=== PATIENT | female | born 1970 | race Caucasian/White ===

== ENCOUNTER 2019-06-05 19:26 | Emergency (ER) | payer OTHER, SELFPAY ==
[2019-06-05 19:36] VITALS: BP 132/75; PULSE 83; RESP 20; TEMP 37.1; O2SAT 97
--- NOTE | 2019-06-05 19:37 | ED.SKABFB ---
HPI - Skin/Abscess/Foreign Bdy General Chief complaint: Skin/Abscess/Foreign Body Stated complaint: Rash Time Seen by Provider: 06/05/19 19:35 Source: patient and RN notes reviewed Mode of arrival: ambulatory Limitations: no limitations History of Present Illness HPI narrative: 49-year-old female presents with concern for rash. Reports a history of hives for which she takes 2 Zyrtec and famotidine daily. Reports this rash started Saturday on her breasts and under her axilla. Reports it is extremely itchy and she is been scratching it quite a bit. complaint: rash Related Data Home Medications Medication Instructions Recorded Confirmed cetirizine [Zyrtec] 10 mg PO DAILY 06/05/19 06/05/19 famotidine 20 mg PO BID 06/05/19 06/05/19 montelukast [Singulair] 10 mg PO HS 06/05/19 06/05/19 sertraline 100 mg PO DAILY 06/05/19 06/05/19 spironolactone 100 mg PO QAM 06/05/19 06/05/19 Allergies Allergy/AdvReac Type Severity Reaction Status Date / Time No Known Allergies Allergy Verified 06/05/19 19:48 Review of Systems Review of Systems: Narrative: CONSTITUTIONAL: Denies malaise, chills, sweats, or fever. EYES: Denies visual changes, redness, or discharge. ENT: Denies sore throat, difficulty swallowing CARDIOVASCULAR: Denies chest pain, palpitations RESPIRATORY: Denies cough or dyspnea. GASTROINTESTINAL: Denies nausea, vomiting, diarrhea, bloody, or mucous stools. SKIN: Reports itchy rash on breasts and underarms MUSCULOSKELETAL: Denies myalgia. NEUROLOGIC: Denies headache. All systems reviewed & are unremarkable except as noted in HPI and below PMFSH Comments At time of signature, agree with nursing past medical, surgical, social and family history. There is no relevant family history pertinent to the presenting complaint Exam Narrative: Exam Narrative: GENERAL: Well-appearing, well-nourished, and in no acute distress. HEAD: Normocephalic, atraumatic. EYES: PERRLA, conjunctivae clear ENT: Mucous membranes moist. Oropharynx without edema, erythema or lesions. NECK: Supple. CHEST: No respiratory distress. Speaks in full sentences. HEART: Regular rate and rhythm. EXTREMITIES: Normal range of motion. SKIN: Warm, dry, no rash. [place] and erythematous maculopapular rash noted to bilateral breasts under bra and under axilla consistent with Jaycee NEURO: Alert and oriented x3. PSYCH: Normal mood and affect Course Course Emergency Course: Patient is aware of diagnosis, understands and agrees to treatment plan. Anticipatory guidance given. Patient agrees to follow-up as directed and is aware of reasons to seek care at the emergency department. Portions of this record may have been created with voice recognition software Vital Signs Vital signs: Vital Signs Temperature 98.8 F 06/05/19 19:36 Pulse Rate 83 06/05/19 19:36 Respiratory Rate 20 06/05/19 19:36 Blood Pressure 132/75 06/05/19 19:36 Pulse Oximetry 97 06/05/19 19:36 Temperature 98.8 F 06/05/19 19:36 Pulse Rate 83 06/05/19 19:36 Respiratory Rate 20 06/05/19 19:36 Blood Pressure 132/75 06/05/19 19:36 Pulse Oximetry 97 06/05/19 19:36 Reviewed. MDM - Skin/Abscess/Foreign Bdy MDM Narrative Medical decision making narrative: Does not appear at this time to be erythema multiforme, bullous, SJS, TEN; no evidence at this time to suggest RMSF, endocarditis or Lyme disease; patient looks well, nontoxic and is tolerating oral intake; no neurologic signs or symptoms; no headache, photophobia or neck pain; afebrile; appropriate for initial outpatient treatment; discussed the importance of follow-up, patient agrees; question, viral exanthema, contact dermatitis, allergic dermatitis, eczema, urticaria, tinea, Jaycee. No soft palate or uvula edema, no tongue, lip edema or other mucosal involvement, no respiratory compromise, no stridor, no wheezing, no wheezing, no history of syncope, no hypotension, no nausea, vomiting, or diarrhea. Instruct
== END 2019-06-05 19:53 | disposition home or self-care (01) ==
PROVIDERS: Emergency Provider Nurse Practitioner; PCP Internal Medicine
DX: B37.2 Candidiasis of skin and nail (principal)
CPT/HCPCS: 99213; G0463

== ENCOUNTER 2020-04-03 10:24 | Emergency (ER) | payer OTHER, SELFPAY ==
[2020-04-03 10:32] VITALS: BP 121/42; PULSE 85; RESP 16; TEMP 36.6; O2SAT 98
--- NOTE | 2020-04-03 11:15 | ED.FEMALEGU ---
HPI - Female Genitourinary General Chief complaint: Urogenital-Female Stated complaint: poss uti Time Seen by Provider: 04/03/20 10:40 Source: patient and RN notes reviewed Mode of arrival: ambulatory Limitations: no limitations History of Present Illness HPI Narrative: 50-year-old female who presents to [facility] with complaints of having left lower abdominal discomfort starting yesterday with frequency, urgency, and trouble urinating. This morning pain in her left lower abdomen awoke her with pain being very sharp with continued suprapubic pressure, urination of small amounts. Patient states that she was diagnosed last year with diverticulitis and her pain today is similar to that event. Patient also has rash which is red raised and itchy to her upper chest and breast area using triamcinolone cream to skin rash.Patient reports that he was started on Augmentin this past week for a sinus infection then developed rash, did not take dose this morning. Patient denies any vomiting or diarrhea, denies any radiation of pain or any CVA tenderness. MD elicited complaint: dysuria, difficulty urinating and other (left lower quadrant pain) Pertinent past history: other (diverticulitis) Onset (ago): day(s) (1) Location of symptoms: suprapubic and LLQ Severity: severe Female Urogenital Radiation: Suprapubic and LLQ Severity scale (1-10): 7 Quality of pain: sharp Consistency: progressively worsening Vaginal discharge: none Vaginal bleeding: none Urinary symptoms: Urgency (going small amounts) and Frequency Exacerbating factors: urination and movement Relieving factors: none Associated symptoms: abdominal pain (LLQ) Sexual activity: Yes Patient : No Possible : other (mirena) Related Data Home Medications Medication Instructions Recorded Confirmed cetirizine [Zyrtec] 10 mg PO BID 06/05/19 04/03/20 famotidine 20 mg PO BID 06/05/19 04/03/20 montelukast [Singulair] 10 mg PO HS 06/05/19 04/03/20 sertraline 100 mg PO DAILY 06/05/19 04/03/20 spironolactone 100 mg PO QAM 06/05/19 04/03/20 acyclovir 800 mg PO BID 04/03/20 04/03/20 amoxicillin-pot clavulanate 1 tablet PO Q12H 04/03/20 04/03/20 levonorgestrel [Mirena] 1 device INTRAUTERINE ONCE 04/03/20 04/03/20 lorazepam 0.5 mg PO HS PRN 04/03/20 04/03/20 spironolactone 100 mg PO DAILY 04/03/20 04/03/20 triamcinolone acetonide 1 applic TOPICAL BID 04/03/20 04/03/20 Allergies Allergy/AdvReac Type Severity Reaction Status Date / Time No Known Allergies Allergy Verified 04/03/20 10:55 Review of Systems Review of Systems: Narrative: CONSTITUTIONAL: Denies fever, chills, or sweats. EYES: Denies visual changes, redness, or discharge. ENT: Denies rhinorrhea, congestion, sore throat, or otalgia. CARDIOVASCULAR: Denies chest pain, palpitations, or edema. RESPIRATORY: Denies cough or dyspnea. GASTROINTESTINAL: Positive for sharp left lower quadrant abdominal pain,no nausea, vomiting, or diarrhea. GENITOURINARY: Reports difficulty with urination, some urgency, frequency, and pelvic pressure with no visible hematuria noted. SKIN: Denies rash or itching. MUSCULOSKELETAL: Denies back pain, joint pain, or myalgia. NEUROLOGIC: Denies headache, numbness, or weakness. PSYCHIATRIC: Denies anxiety or depression. All systems reviewed & are unremarkable except as noted in HPI and below PMFSH Past Medical History Medical History (Updated 04/04/20 @ 15:02 by Yaa Hawthorne NP) Depression Diverticulitis Hidradenitis removal of cysts bilateral axilla Surgical History Surgical History (Updated 04/03/20 @ 13:40 by Yaa Hawthorne NP) Hx of spinal surgery 2006 lumbar cage Social History Social History (Updated 04/03/20 @ 13:41 by Yaa Hawthorne NP) Smoking status: Never smoker Substance use: never Living arrangements: with family Gender identity (if verbalized by the patient): Female Comments At time of signature, agree with nursing past medical, surgical, social his
== END 2020-04-03 11:30 | disposition short-term general hospital (02) ==
PROVIDERS: Emergency Provider Registered Nurse; PCP Internal Medicine
DX: R10.32 Left lower quadrant pain (principal); N39.0 Urinary tract infection, site not specified
CPT/HCPCS: 81003; 87077; 87086; 87088; 87186; 99213; G0463

== ENCOUNTER 2021-04-14 17:01 | Emergency (ER) | payer OTHER, SELFPAY ==
[2021-04-14 17:16] VITALS: BP 131/85; PULSE 100; RESP 20; TEMP 37.7; O2SAT 98
--- NOTE | 2021-04-14 18:01 | ED.URI ---
HPI - URI/Sore Throat General Chief Complaint: Upper Respiratory Infection Stated Complaint: Sinus Pain Source: patient and RN notes reviewed Mode of arrival: ambulatory Limitations: no limitations History of Present Illness HPI Narrative: 51 y/o female presented for c/o sinus pressure, congestion, PND and cough with green sputum x3 days. Pressure worse behind eyes, endorses hoarseness. Denies fatigue, n/v/d/f/c. Home covid test negative. fully vaccinated. No known sick contacts. Takes zyrtec daily. Related Data Home Medications Medication Instructions Recorded Confirmed acyclovir 400 mg PO DAILY 04/14/21 04/14/21 buspirone 10 mg PO DAILY 04/14/21 04/14/21 levonorgestrel [Mirena] 1 insert INTRAUTERINE ONCE 04/14/21 04/14/21 nortriptyline 10 mg PO DAILY 04/14/21 04/14/21 sertraline 150 mg PO DAILY 04/14/21 04/14/21 Review of Systems Review of Systems: CONSTITUTIONAL: Denies body aches, fever, chills, or sweats. EYES: Denies visual changes, redness, or discharge. ENT: Endorses rhinorrhea, congestion, Denies sore throat, or otalgia. CARDIOVASCULAR: Denies chest pain, palpitations, or edema. RESPIRATORY: Endorses cough denies dyspnea. GASTROINTESTINAL: Denies abdominal pain, nausea, vomiting, or diarrhea. GENITOURINARY: Denies dysuria or hematuria. SKIN: Denies rash, itching, or wounds. MUSCULOSKELETAL: Denies back pain, joint pain, or myalgia. NEUROLOGIC: Denies headache, numbness, tingling, or weakness. Exam Narrative: GENERAL: Well-appearing, no acute distress. HEAD: Normocephalic, atraumatic. EYES: EOMI. No redness or drainage. Conjunctivae normal. ENT: Mucous membranes pink and moist. Nares clear. No rhinorrhea. NECK: Normal AROM. Supple. CHEST: No respiratory distress. Clear to auscultation. HEART: Regular rate and rhythm. No murmur appreciated. Normal peripheral pulses. ABDOMEN: Soft, nontender MUSCULOSKELETAL: No bony tenderness. EXTREMITIES: Normal range of motion. No edema. SKIN: Warm, dry, no rash. Capillary refill normal. Normal skin turgor. NEURO: No focal deficits. Alert and oriented x3. Gait steady. PSYCH: Normal affect. No signs of depression or anxiety. Course Course Emergency Course: Covid swab neg Patient is aware of diagnosis, understands and agrees to treatment plan. Anticipatory guidance given. Patient agrees to follow-up as directed and is aware of reasons to seek care at the emergency department. Portions of this record may have been created with voice recognition software Level of Care: Express Care Visit Vital Signs Vital signs: Vital Signs Temperature 99.8 F H 04/14/21 17:16 Pulse Rate 100 04/14/21 17:16 Respiratory Rate 20 04/14/21 17:16 Blood Pressure 131/85 04/14/21 17:16 Pulse Oximetry 98 04/14/21 17:16 Temperature 99.8 F H 04/14/21 17:16 Pulse Rate 100 04/14/21 17:16 Respiratory Rate 20 04/14/21 17:16 Blood Pressure 131/85 04/14/21 17:16 Pulse Oximetry 98 04/14/21 17:16 reviewed MDM - URI/Sore Throat Differential Diagnosis Differential diagnosis: Likely upper respiratory infection, sinusitis and viral infection Lab Data Attestation: I reviewed the patient's lab results. Labs: Lab Results 04/14/21 Range/Units 18:44 POC SARS CoV-2 Ag Negative (Negative) Discharge Plan Discharge Clinical Impression: Upper respiratory infection Patient Disposition: Home, Self-Care Condition: Stable Instructions: Antibiotic Form, Upper Respiratory Infection (ED) Additional Instructions: Tylenol 1000mg every 8 hours as needed Continue Zyrtec Start Flonase daily Your Rapid COVID test was negative today. If you are symptomatic with reason to believe you have COVID-19, there is a high possibility your rapid test may not have detected the virus. Rapid testing is dependent on timing and viral load and may have a false-negative reading You should follow appropriate guidelines regarding quarantine, hand washing, mask wearing,
== END 2021-04-14 19:05 | disposition home or self-care (01) ==
PROVIDERS: Emergency Provider Nurse Practitioner Family
DX: J06.9 Acute upper respiratory infection, unspecified (principal); Z20.822 Contact with and (suspected) exposure to COVID-19
CPT/HCPCS: 87426; 99213; C9803; G0463

== ENCOUNTER 2022-07-09 12:40 | Emergency (ER) | payer OTHER, SELFPAY ==
[2022-07-09 12:51] VITALS: BP 129/72; PULSE 72; RESP 16; TEMP 36.6; O2SAT 100
--- NOTE | 2022-07-09 12:51 | ED.ABDPAIN ---
HPI - Abdominal Pain General Chief Complaint: Abdominal Pain Stated Complaint: Abdominal Pain/Diarrhea Time Seen by Provider: 07/09/22 12:53 Source: patient and RN notes reviewed History of Present Illness HPI narrative: Patient is a 52-year-old female who presents to urgent care with complaints of lower abdominal discomfort and loose stools. Patient states she has had approximately 5 or 6 loose stools since Saturday. Patient states she was diagnosed with IBS a couple months ago after having an upper and lower GI scope. Patient states she has not followed up with her GI doctor since the symptoms started. Denies any vomiting. Denies any recent urinary symptoms. Denies any fevers. No other acute complaints. No acute distress noted. Patient aware of the plan of care. Some parts of this dictation were generated by voice recognition software and may contain typographical and/or grammatical inaccuracies. Related Data Home Medications Medication Instructions Recorded Confirmed sertraline 100 mg tablet 100 mg PO DAILY 06/05/19 04/03/20 acyclovir 800 mg tablet 800 mg PO BID 04/03/20 04/03/20 levonorgestrel 21 mcg/24 hours (8 1 device intrauterine ONCE 04/03/20 04/03/20 yrs) 52 mg intrauterine device (Mirena) lorazepam 0.5 mg tablet 0.5 mg PO HS PRN Anxiety 04/03/20 04/03/20 spironolactone 100 mg tablet 100 mg PO DAILY 04/03/20 04/03/20 triamcinolone acetonide 0.1 % 1 applic topical BID 04/03/20 04/03/20 topical ointment Allergies Allergy/AdvReac Type Severity Reaction Status Date / Time No Known Allergies Allergy Verified 04/03/20 10:55 Review of Systems Review of Systems: CONSTITUTIONAL: Denies fever, chills, or sweats. EYES: Denies visual changes, redness, or discharge. ENT: Denies rhinorrhea, congestion, sore throat, or otalgia. CARDIOVASCULAR: Denies chest pain, palpitations, or edema. RESPIRATORY: Denies cough or dyspnea. GASTROINTESTINAL: Reports of lower abdominal discomfort and diarrhea GENITOURINARY: Denies dysuria or hematuria. SKIN: Denies rash or itching. MUSCULOSKELETAL: Denies back pain, joint pain, or myalgia. NEUROLOGIC: Denies headache, numbness, or weakness. All other systems reviewed are negative, except as documented in HPI. [facility] Past Medical History Medical History (Updated 07/09/22 @ 13:13 by VALENTIN Andre) Depression Diverticulitis Hidradenitis removal of cysts bilateral axilla Surgical History Surgical History (Updated 04/03/20 @ 13:40 by Yaa Hawthorne NP) Hx of spinal surgery 2006 lumbar cage Social History Social History (Updated 04/03/20 @ 13:41 by Yaa Hawthorne NP) Smoking status: Never smoker Substance use: never Living arrangements: with family Gender identity (if verbalized by the patient): Female Comments At the time of my signature, I reviewed and agree with the nursing past medical, surgical, social, and family history. There is no relevant family history pertinent to the patient complaint. Exam Narrative: GENERAL: This is a well-nourished, well-developed patient, in no apparent distress. HEAD: normocephalic, atraumatic. EYES: PERRL. Sclera clear/white. Vision is grossly intact. EARS: External ears normal NOSE: External nose normal with no obvious nasal discharge, nares without redness, no rhinorrhea. THROAT: Mucous membranes moist NECK: Neck supple CARDIOVASCULAR: Regular rate and rhythm without murmurs, gallops, or rubs. RESPIRATORY: Clear to auscultation. Breath sounds equal bilaterally. No wheezes, rales, or rhonchi. GASTROINTESTINAL: Abdomen soft, mild diffuse lower abdominal tenderness, nondistended. Bowel sounds are active. No guarding. SKIN: warm, intact with no suspicious lesions or rash, good texture and turgor. NEURO: awake, alert, and oriented to person, place and time. There were no obvious focal neurologic abnormalities. EXTREMITIES: No clubbing, cyanosis, or edema. Course Course Level of Care: Dinesh Santos
== END 2022-07-09 13:17 | disposition home or self-care (01) ==
PROVIDERS: Emergency Provider Nurse Practitioner Family; PCP Internal Medicine
DX: R19.7 Diarrhea, unspecified (principal); Z87.19 Personal history of other diseases of the digestive system; F32.A Depression, unspecified
CPT/HCPCS: 81003; 99212; G0463

== ENCOUNTER 2023-05-31 15:50 | Outpatient (CLI) | payer OTHER, SELFPAY ==
--- NOTE | ~2023-05-31 | XR_ITS ---
EXAMINATION: XR lumbar spine 2-3V DATE: 05/31/2023 16:22 INDICATION: Spondylosis without myelopathy or radiculopathy. TECHNIQUE: 5 views of lumbar spine including flexion and extension views and standing views were obta ined. COMPARISON: None. FINDINGS: There is 4 degrees dextrocurvature of lumbar spine. There are changes of anterior fusion pr ocedure at L4-L5 with interbody devices and anterior plate and screws. The spine is hypomobile with f lexion and extension. Vertebral body heights are normal. There is severely decreased disc height at T 11-T12 and L2-L3 and moderately decreased disc height at L3-L4. There is multilevel facet joint osteo arthritis, severe in the lower lumbar spine. There is an intrauterine device in expected position. IMPRESSION: 1. Severe lumbar spondylosis. 2. Anterior fusion procedure at L4-L5. Reviewed, dictated and finalized at location E. ERMAKER'S ASSISTANT
== END 2023-05-31 15:51 | disposition home or self-care (01) ==
PROVIDERS: Visit Provider Physician Assistant
DX: M47.896 Other spondylosis, lumbar region (principal); Z98.1 Arthrodesis status
CPT/HCPCS: 72100

== ENCOUNTER 2023-06-14 15:12 | Outpatient (CLI) | payer OTHER, SELFPAY ==
--- NOTE | ~2023-06-14 | MR_ITS ---
EXAMINATION: MR thoracic spine wo con DATE: 06/14/2023 15:46 INDICATION: Lumbar radiculopathy radiating down the right leg. Low back pain. TECHNIQUE: Magnetic resonance imaging (MRI) of the thoracic spine was performed without intravenous c ontrast. COMPARISON: Lumbar spine radiographs 05/31/2023 FINDINGS: There is 6 degrees levocurvature of upper thoracic spine. There is mild chronic anterior we dging of T11 and T12 vertebral bodies. There is moderately decreased disc height at T2-T3, mildly dec reased disc height at T3-T4, and severely decreased disc height at T11-T12. At T7-T8, there is a righ t central extrusion with mild central canal stenosis and ventral indentation of the spinal cord. At T 11-T12, the disc is bulging with mild central canal stenosis. At T12-L1, there is a central protrusio n with mild central canal stenosis. There is multilevel severe facet joint osteoarthritis. There is m ild neural foraminal stenosis bilaterally at most levels. On the right, there is moderate neural fora chelsea stenosis at T8-9. On the left, there is moderate neural foraminal stenosis at T9-T10. The spina l cord signal intensity is normal. The conus medullaris is at L1-L2. IMPRESSION: 1. Severe thoracic spondylosis. Reviewed, dictated and finalized at location E. NE PROJECT MANAGER
== END 2023-06-14 15:13 ==
PROVIDERS: PCP Anesthesiology Pain Medicine; Visit Provider Anesthesiology Pain Medicine
DX: M43.04 Spondylolysis, thoracic region (principal)
CPT/HCPCS: 72146

== ENCOUNTER 2023-07-31 15:13 | Outpatient (CLI) | payer OTHER, SELFPAY ==
--- NOTE | ~2023-07-31 | XR_ITS ---
EXAMINATION: XR chest 2V 07/31/2023 15:31 INDICATION: Failed back surgery syndrome PROCEDURE: 2 view chest COMPARISON: No prior studies for comparison. FINDINGS: The lungs are clear. The cardiomediastinal silhouette is within normal limits. There are no pleural effusions. There is no pneumothorax suspected. IMPRESSION: 1: NO ACUTE CARDIOPULMONARY DISEASE. Reviewed, dictated and finalized at location B.
--- NOTE | 2023-07-31 15:36 | ECG_ITS ---
SEE SCANNED COPY FOR CONFIRMED REPORT MTDD
== END 2023-07-31 15:14 | disposition home or self-care (01) ==
PROVIDERS: PCP Anesthesiology Pain Medicine; Visit Provider Neurological Surgery
DX: M96.1 Postlaminectomy syndrome, not elsewhere classified (principal)
CPT/HCPCS: 71046; 93005

== ENCOUNTER 2023-12-13 16:08 | Emergency (ER) | payer OTHER, SELFPAY ==
--- NOTE | ~2023-12-13 | XR_ITS ---
EXAMINATION: XR foot LT min 3V DATE: 12/13/2023 16:38 INDICATION: Dorsal lateral left foot pain TECHNIQUE: Dorsoplantar, two oblique and lateral views of the left foot were obtained. COMPARISON: None. FINDINGS: Bone alignment is normal. No fracture. Polyarticular osteoarthritis the left foot, mild at the first metatarsophalangeal joint and minimal to mild at several tarsometatarsal and interphalangeal joints. No erosions to suggest inflammatory arthritis. Small heterotopic ossicle along the dorsal neck the ta erin likely sequela of old trauma. Mild soft tissue dorsum of the forefoot. No ankle joint effusion. IMPRESSION: 1. Mild polyarticular osteoarthritis in the mid and forefoot. No acute osseous abnormality. Reviewed, dictated and finalized at location A.
[2023-12-13 16:15] VITALS: BP 121/67; PULSE 77; RESP 16; TEMP 36.6; O2SAT 99
--- NOTE | 2023-12-13 16:16 | ED.EXTPRO ---
HPI - Extremity Problem General Chief complaint: Extremity Problem,Nontraumatic Stated complaint: Swollen Left Foot Time Seen by Provider: 12/13/23 16:16 Source: patient, RN notes reviewed and old records reviewed Mode of arrival: ambulatory Limitations: no limitations History of Present Illness HPI Narrative: 53-year-old female presents to the [facility] with complaints of left foot pain that started 2 days ago. Denies any injury. Reports mild swelling to the dorsal and lateral aspect. Positive pedal pulse. Maybe to move toes. Capillary refill under 2 seconds. Does wear sandals Onset (ago): day(s) (2) Related Data Home Medications Medication Instructions Recorded Confirmed levonorgestrel 21 mcg/24 hr (up to 1 device intrauterine ONCE 04/03/20 12/13/23 8 years) 52 mg intrauterine device (Mirena) lorazepam 0.5 mg tablet 0.5 mg PO HS PRN Anxiety 04/03/20 12/13/23 acyclovir 400 mg tablet 400 mg PO DAILY 04/14/21 12/13/23 sertraline 100 mg tablet 150 mg PO DAILY 04/14/21 12/13/23 acetaminophen 500 mg capsule 500 mg PO ONCE PRN Pain, Mild 05/08/23 12/13/23 omeprazole 20 mg capsule,delayed 20 mg PO BID 05/08/23 12/13/23 release cetirizine 10 mg tablet (Zyrtec) 10 mg PO DAILY 12/13/23 12/13/23 pregabalin 150 mg capsule 150 mg PO BID 12/13/23 12/13/23 vibegron 75 mg tablet (Gemtesa) 75 mg PO DAILY 12/13/23 12/13/23 Allergies Allergy/AdvReac Type Severity Reaction Status Date / Time amoxicillin Allergy Hives Verified 12/13/23 16:13 Review of Systems Review of Systems: All systems reviewed & are unremarkable except as noted in HPI and below Constitutional: Constitutional: Reports no additional constitutional complaints Eyes: Eyes: Reports no additional eye complaints ENT: Reports system reviewed and no additional complaints, except as documented Cardiovascular: Cardiovascular: Reports no additional cardiovascular complaints, Denies chest pain and Denies dyspnea Respiratory: Respiratory: Reports no additional respiratory complaints, Denies chest congestion, Denies cough and Denies dyspnea Gastrointestinal: Gastrointestinal: Reports no additional gastrointestinal complaints, Denies abdominal pain, Denies nausea and Denies vomiting Musculoskeletal: Musculoskeletal: Reports as per HPI Integumentary/Breasts: Skin/Breast: Reports system reviewed and no additional complaints, except as docu Neurologic: Reports system reviewed and no additional complaints, except as documented Psychiatric: Psychiatric: Reports no additional psychiatric complaints Allergic/Immunologic: Allergic/Immunologic: Reports no additional allergic/immunologic complaints [facility] Past Medical History Medical History Depression Diverticulitis Hidradenitis removal of cysts bilateral axilla Surgical History Surgical History Hx of spinal surgery 2006 lumbar cage Family History Family History Father Depression Heart disease Mother Hypertension Depression Grandparent Alcoholism Social History Social History Smoking status: Never smoker Alcohol intake: never Substance use: never Substance use type: does not use Do You Feel Safe in your Home?: Yes Lack of Transportation: No Lack of Food: Never True Current Housing: I Have Housing Concerned About Future Housing: No Difficulty Paying Gas/Electric Bills: No Difficulty Paying for Meds: No Currently Unemployed: No Education: Master's Degree or Higher Difficulty w/ Childcare or Family Care: No Living arrangements: with family Gender identity (if verbalized by the patient): Female Comments At the time of my signature, I reviewed and agree with the nursing past medical, surgical, social, and family history. There is no relevant famil
[2023-12-13 16:18] VITALS: BP 121/67; PULSE 77; RESP 16; TEMP 36.6; O2SAT 99
== END 2023-12-13 16:56 | disposition home or self-care (01) ==
PROVIDERS: Emergency Provider Nurse Practitioner; PCP Internal Medicine
DX: M19.072 Primary osteoarthritis, left ankle and foot (principal); F32.A Depression, unspecified
CPT/HCPCS: 73630; 99213; G0463

== ENCOUNTER 2024-03-01 08:27 | Emergency (ER) | payer OTHER, SELFPAY ==
[2024-03-01 08:32] VITALS: BP 144/86; PULSE 88; RESP 18; TEMP 36.6; O2SAT 98
--- NOTE | 2024-03-01 08:46 | ED.GENADULT ---
HPI - General Adult General Stated complaint: Urinary Problem Source: patient Mode of arrival: ambulatory Limitations: no limitations History of Present Illness HPI narrative: Patient presents for evaluation of urinary symptoms for last 2 weeks. Symptoms include urinary frequency, urgency, and some incontinence. She states the incontinence is not new. 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 She had issues with incontinence thereafter and was told that she will have ongoing urinary issues as a result of that. No fever, chills, nausea, vomiting, abdominal pain, low back pain, hematuria or dysuria. Related Data Home Medications Medication Instructions Recorded Confirmed levonorgestrel 21 mcg/24 hr (up to 1 device intrauterine ONCE 04/03/20 12/13/23 8 years) 52 mg intrauterine device (Mirena) lorazepam 0.5 mg tablet 0.5 mg PO HS PRN Anxiety 04/03/20 12/13/23 acyclovir 400 mg tablet 400 mg PO DAILY 04/14/21 12/13/23 sertraline 100 mg tablet 150 mg PO DAILY 04/14/21 12/13/23 acetaminophen 500 mg capsule 500 mg PO ONCE PRN Pain, Mild 05/08/23 12/13/23 omeprazole 20 mg capsule,delayed 20 mg PO BID 05/08/23 12/13/23 release cetirizine 10 mg tablet (Zyrtec) 10 mg PO DAILY 12/13/23 12/13/23 pregabalin 150 mg capsule 150 mg PO BID 12/13/23 12/13/23 vibegron 75 mg tablet (Gemtesa) 75 mg PO DAILY 12/13/23 12/13/23 Allergies Allergy/AdvReac Type Severity Reaction Status Date / Time amoxicillin [From Augmentin] Allergy Unknown Unknown Verified 03/01/24 08:49 clavulanic acid Allergy Unknown Unknown Verified 03/01/24 08:49 [From Augmentin] Review of Systems Review of Systems: CONSTITUTIONAL: Denies fever, chills, or sweats. EYES: Denies visual changes, redness, or discharge. ENT: Denies rhinorrhea, congestion, sore throat, or otalgia. CARDIOVASCULAR: Denies chest pain, palpitations, or edema. RESPIRATORY: Denies cough or dyspnea. GASTROINTESTINAL: Denies abdominal pain, nausea, vomiting, or diarrhea. GENITOURINARY: Reports urinary frequency, urgency, and incontinence(chronic). Denies dysuria and hematuria SKIN: Denies rash or itching. MUSCULOSKELETAL: Denies back pain, joint pain, or myalgia. NEUROLOGIC: Denies headache, numbness, dizziness, or weakness. PSYCHIATRIC: Denies anxiety or depression. [facility] Past Medical History Medical History Depression Diverticulitis Hidradenitis removal of cysts bilateral axilla Surgical History Surgical History Hx of spinal surgery 2006 lumbar cage Family History Family History Father Depression Heart disease Mother Hypertension Depression Grandparent Alcoholism Social History Social History Smoking status: Never smoker Alcohol intake: never Substance use: never Substance use type: does not use Do You Feel Safe in your Home?: Yes Lack of Transportation: No Lack of Food: Never True Current Housing: I Have Housing Concerned About Future Housing: No Difficulty Paying Gas/Electric Bills: No Difficulty Paying for Meds: No Currently Unemployed: No Education: Master's Degree or Higher Difficulty w/ Childcare or Family Care: No Living arrangements: with family Gender identity (if verbalized by the patient): Female Exam Narrative: GENERAL: Well-appearing, well-nourished, and in no acute distress. HEAD: Normocephalic, atraumatic. EYES: PERRLA and EOMI. ENT: Nares clear, no rhinorrhea or epistaxis. Mucous membranes moist. Oropharynx without tonsillar hypertrophy exudate or other lesions. Bilateral TMs pearly brown nonbulging NECK: Supple. No adenopathy or masses. No carotid bruits or JVD CHEST: Clear to auscultation. No respiratory distress. No wheezes rales or rhonchi HEART: Regular rate and rhythm. No murmur heard. Normal peripheral pulses. ABDOMEN: Soft, nontender, nondistended, normal active bowel sounds. EXTREMITIES: Normal range of motion. No edema. SKIN: Warm, dry, no rash. NEURO: No focal deficits. Alert and oriented x3. PSYCH: Normal mood and affect. Course Course Emergency Course: This is a 53-year-old female who presented for evaluation of urinary symptoms. Her incontinence is chronic and her surgeon advised that this could be expected. Her urine today is positive for nitrites. Will send urine for culture. Start bactrim. Follow up wiht primary provider. Go to the ER for worsening symptoms. Pt in agreement with plan of care. Level of Care: Express Care Visit Vital Signs Vital signs: Vital Signs Temperature 36.6 C 03/01/24 08:32 Pulse Rate 88 03/01/24 08:32 Respiratory Rate 18 03/01/24 08:32 Blood Pressure 144/86 H 03/01/24 08:32 Pulse Oximetry 98 03/01/24 08:32 Oxygen Delivery Room Air 03/01/24 08:32 Temperature 36.6 C 03/01/24 08:32 Pulse Rate 88 03/01/24 08:32 Respiratory Rate 18 03/01/24 08:32 Blood Pressure 144/86 H 03/01/24 08:32 Pulse Oximetry 98 03/01/24 08:32 Oxygen Delivery Room Air 03/01/24 08:32 Medical Decision Making Vital Signs Vital Signs: Vital Signs Temperature 36.6 C 03/01/24 08:32 Pulse Rate 88 03/01/24 08:32 Respiratory Rate 18 03/01/24 08:32 Blood Pressure 144/86 H 03/01/24 08:32 Pulse Oximetry 98 03/01/24 08:32 Oxygen Delivery Room Air 03/01/24 08:32 Temperature 36.6 C 03/01/24 08:32 Pulse Rate 88 03/01/24 08:32 Respiratory Rate 18 03/01/24 08:32 Blood Pressure 144/86 H 03/01/24 08:32 Pulse Oximetry 98 03/01/24 08:32 Oxygen Delivery Room Air 03/01/24 08:32 Discharge Plan Discharge Clinical Impression: UTI (urinary tract infection) Patient Disposition: Home, Self-Care Condition: Stable Instructions: Antibiotic Form, Urinary Tract Infection in Women (ED) Patient Language: Yakut Prescriptions: New sulfamethoxazole-trimethoprim [Bactrim DS] 800-160 mg tablet 1 tablet PO Q12H Qty: 14 0RF No Action sertraline 100 mg tablet 150 mg PO DAILY acyclovir 400 mg Tablet 400 mg PO DAILY Rx Instructions: TAKE NEEDED FOR CANKER SORES Mirena 20 mcg/24 hours (6 yrs) 52 mg Intrauterine Device 1 device INTRAUTERINE ONCE lorazepam 0.5 mg Tablet 0.5 mg PO HS PRN (Reason: Anxiety) pregabalin 150 mg Capsule 150 mg PO BID Gemtesa 75 mg Tablet 75 mg PO DAILY cetirizine [Zyrtec] 10 mg Tablet 10 mg PO DAILY omeprazole 20 mg capsule,delayed release(DR/EC) 20 mg PO BID acetaminophen 500 mg capsule 500 mg PO ONCE PRN (Reason: Pain, Mild) Follow-up/Referrals: Michele,Jose Schultz MD [Primary Care Provider] - Time of Disposition: 08:50
[2024-03-01 09:36] LABS: EDUAAPPEAR Cloudy; EDUABILI Negative (Negative); EDUABLOOD Negative (Negative); EDUACOLOR1 Yellow; EDUAGLUCOSE Negative (Negative); EDUAKETONE Negative (Negative); EDUALEUKO Negative (Negative); EDUANITRATE Positive (Negative); EDUAPROTEIN Negative (Negative); EDUAUROBILI 0.2
== END 2024-03-01 08:52 | disposition home or self-care (01) ==
PROVIDERS: Emergency Provider Nurse Practitioner; PCP Internal Medicine
DX: N39.0 Urinary tract infection, site not specified (principal); B96.20 Unspecified Escherichia coli [E. coli] as the cause of diseases classified elsewhere; Z96.82 Presence of neurostimulator
CPT/HCPCS: 81003; 87086; 87186; 99213; G0463

== ENCOUNTER 2024-04-24 15:19 | Outpatient (CLI) | payer OTHER, SELFPAY ==
--- NOTE | ~2024-04-24 | XR_ITS ---
XR abdomen/kub 1V Ordering provider: Geovany Patrick MD History: . Chronic cystitis wo hematuria . Comparison: None. FINDINGS: BOWEL: Nonobstructive bowel gas pattern. ORGANOMEGALY: None. SIGNIFICANT PATHOLOGIC CALCIFICATIONS: None. OTHER: No free air is seen under the diaphragm. Postoperative changes at the level of L4-L5. IUD is s een in the uterus. IMPRESSION: NO ACUTE ABDOMINAL FINDINGS. Reviewed, dictated and finalized at location [facility]. [facility]
== END 2024-04-24 15:20 | disposition home or self-care (01) ==
LOC: ANHIMG 15:21
PROVIDERS: PCP Internal Medicine; Visit Provider Urology
DX: N30.20 Other chronic cystitis without hematuria (principal)
CPT/HCPCS: 74018

== ENCOUNTER 2024-07-17 15:03 | Outpatient (CLI) | payer OTHER, SELFPAY ==
--- NOTE | ~2024-07-17 | MR_ITS ---
MRI of the lumbar spine Clinical History: Radiculopathy Technique: Axial T2-weighted images, and sagittal T1-weighted, T2-weighted, and and T2 fat-sat images were acquired. Findings: There is no acute fracture. There is anterior fusion from L4 to L5. There is 4 mm retrolist hesis of L2 over L3. There is 3 mm retrolisthesis of L3 over L4. No suspicious bone marrow signal abn ormality seen. At L1-L2, there is no disc bulge or herniation. There is minimal facet joint hypertrophy. No central canal stenosis or neural foraminal narrowing. At L2-L3, there is advanced degenerative disc narrowing. There is mild disc bulge and moderate facet arthropathy. No central canal stenosis or definite neural foraminal narrowing. At L3-L4, there is advanced degenerative disc narrowing. There is diffuse disc bulge with moderate fa cet arthropathy. There is mild to moderate central canal stenosis/thecal sac compression. There is mo derate to advanced bilateral neural foraminal narrowing. At L4-L5, there is minimal disc bulge with mild facet hypertrophy. No central canal stenosis or defin ite neural foraminal narrowing. At L5-S1, there is minimal disc bulge and severe facet arthropathy. No central canal stenosis. There is moderate bilateral neural foraminal narrowing. Paravertebral soft tissues are unremarkable. Impression: Anterior fusion from L4 to L5. 4 mm retrolisthesis of L2 over L3. 3 mm retrolisthesis of L3 over L4. Additional mild to moderate degenerative changes, as above. Reviewed, dictated and finalized at [facility]. Impression: Anterior fusion from L4 to L5. 4 mm retrolisthesis of L2 over L3. 3 mm retrolisthesis of L3 over L4. Additional mild to moderate degenerative changes, as above.
--- NOTE | ~2024-07-17 | MR_ITS ---
MRI of the thoracic spine Clinical History: Radiculopathy Technique: Axial T2-weighted and gradient images, and sagittal T1-weighted, T2-weighted, and STIR cornelio ges were acquired. COMPARISON: 06/14/2023 Findings: There is no fracture or subluxation of the thoracic spine. Osseous alignment is unchanged f rom prior exam. No suspicious bone marrow signal abnormality seen. Stable severe degenerative disc na rrowing at T11-T12. Stable advanced degenerative disc narrowing at T2-T3. Central disc extrusion at T7-T8 is similar to prior exam, with mild compression of the ventral cord. No other significant disc bulge or herniation seen. No other areas of spinal canal stenosis or cord c ompression identified. There is probable bilateral neural foraminal narrowing at T7-T8 and T8-T9, wit h facet arthropathy at these levels. No abnormal signal seen in the spinal cord. Paravertebral soft tissues are unremarkable. Impression: Central disc extrusion at T7-T8 is similar to prior exam, with mild ventral cord compression. Stable bilateral neural foraminal narrowing at T7-T8 and T8-T9. Stable degenerative changes, as above. Reviewed, dictated and finalized at [facility]. Impression: Central disc extrusion at T7-T8 is similar to prior exam, with mild ventral cor d compression. Stable bilateral neural foraminal narrowing at T7-T8 and T8-T9. Stable degenerative changes, as above.
== END 2024-07-17 15:04 | disposition home or self-care (01) ==
PROVIDERS: PCP Internal Medicine; Visit Provider Nurse Practitioner Family
DX: M51.24 Other intervertebral disc displacement, thoracic region (principal); G95.29 Other cord compression; M48.04 Spinal stenosis, thoracic region; M47.814 Spondylosis without myelopathy or radiculopathy, thoracic region; M54.16 Radiculopathy, lumbar region
CPT/HCPCS: 72146; 72148

== ENCOUNTER 2024-09-03 07:59 | Outpatient (CLI) | payer OTHER, SELFPAY ==
--- NOTE | ~2024-09-03 | XR_ITS ---
Lumbosacral Spine: AP and lateral views Clinical History: Pain COMPARISON: 05/31/2023 Findings: The normal lordotic curve is maintained. Stable anterior and interbody fusion at L4-L5. Mod erate to advanced facet arthropathy is similar to prior exam. Moderate degenerative disc narrowing is present throughout the lumbar spine. No instability evident on flexion or extension. The sacroiliac joints are normally outlined. Impression: Moderate to advanced degenerative spondylosis, as above. Stable anterior fusion at L4-L5. Reviewed, dictated and finalized at location M. Impression: Moderate to advanced degenerative spondylosis, as above. Stable anterior fusion at L4-L5.
--- NOTE | ~2024-09-03 | MR_ITS ---
MRI of the lumbar spine Clinical History: Radiculopathy Technique: Axial T2-weighted images, and sagittal T1-weighted, T2-weighted, and T2 fat-sat images wer e acquired. Following intravenous administration of 18 cc ProHance gadolinium, T1-weighted fat-sat im aging was performed in the axial and sagittal planes. COMPARISON: 07/17/2024 Findings: Osseous alignment is unchanged from recent prior exam. Stable retrolisthesis of L2 over L3, and L3 over L4. No acute fracture seen. There are reactive marrow signal changes about the L3-L4 dis c space due to underlying degenerative disc disease. Stable anterior and interbody fusion from L4 to L5. At L1-L2, there is no disc bulge or herniation. There is moderate facet arthropathy. No central canal stenosis or neural foraminal narrowing. At L2-L3, there is advanced degenerative disc narrowing. There is minimal disc bulge with moderate fa cet arthropathy. No central canal stenosis or neural foraminal narrowing. At L3-L4, there is advanced degenerative disc narrowing. There is diffuse disc bulge with moderate fa cet arthropathy. No central canal stenosis. There is moderate to advanced bilateral neural foraminal narrowing, left worse than right. At L4-L5, there is no disc bulge or herniation. No spinal canal stenosis or neural foraminal narrowin g. At L5-S1, there is minimal disc bulge with severe facet arthropathy. No central canal stenosis. There is moderate to severe bilateral neural foraminal narrowing. Paravertebral soft tissues are unremarkable. No abnormal postcontrast enhancement identified. Impression: No change from prior exam. Stable degenerative spondylosis and postoperative change. Reviewed, dictated and finalized at [facility]. Impression: No change from prior exam. Stable degenerative spondylosis and postoperative ch jenniefr.
--- OUTSIDE RECORDS SUMMARY | 2024-09-03 08:07 | XMS_ITS | Clinical Summary ---
Author Organization [facility] Address [address], [address] [address] Phone Care Team Providers Care Audit Partner Name Role Phone Jose Bautista MD Primary Care Provider Allergies No known active allergies Medications venlafaxine (EFFEXOR) 75 MG Tablet Take 75 mg by mouth 2 times daily. Active Omeprazole Magnesium 20 MG Tablet Delayed Response Take 20 mg by mouth daily. Active LORazepam (ATIVAN) 0.5 MG Tablet Take 0.5 mg by mouth every 6 hours as needed for Anxiety. Active acyclovir (ZOVIRAX) 800 MG Tablet Take 800 mg by mouth as needed. 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 Gender Identity Not on file Sexual Orientation Not on file Last Filed Vital Signs Vital Sign Reading Time Taken Comments Blood Pressure 126/86 12/02/2017 3:30 PM CDT Pulse 99 12/02/2017 3:30 PM CDT Temperature 37.1 C (98.7 F) 12/02/2017 3:30 PM CDT Respiratory Rate 16 12/02/2017 3:30 PM CDT Oxygen Saturation 97% 12/02/2017 3:30 PM CDT Inhaled Oxygen Concentration - - Weight 98.9 kg (218 lb) 12/02/2017 3:30 PM CDT Height 162.6 cm (5' 4) 12/02/2017 3:30 PM CDT Body Mass Index 37.42 12/02/2017 3:30 PM CDT Plan of Treatment Health Maintenance Due Date Last Done Comments Hepatitis C Virus (HCV) Screening 1972 TdaP Immunization 1972 Hepatitis B Immunization (1 of 3 - 19+ 3-dose series) 1991 Colonoscopy 2017 Colorectal Cancer Screening 2017 Cologuard 2022 Immunochemical Fecal Occult Blood 2022 Pneumococcal Immunization (5 0+ years) (1 of 1 - PCV) 2022 Zoster Immunization (1 of 2) 2022 Influenza Immunization (#1) 2023 SARS-COV-2 Immunization ( - season) 2023 01/31/2021, 06/21/2020, 05/19/2020 Respiratory Syncytial Virus (RSV) Immunization (Adult) (1 - 1-dose 75+ series) 2047 Meningococcal Immunization (ACWY) Aged Out No longer eligible b ased on patient's age to complete this topic Rotavirus Immunization Aged Out No lo nger eligible based on patient's age to complete this topic Additional Health Concerns Infection Onset Date Last Indicated 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
== END 2024-09-03 08:00 | disposition home or self-care (01) ==
PROVIDERS: PCP Internal Medicine; Visit Provider Neurological Surgery
DX: M47.816 Spondylosis without myelopathy or radiculopathy, lumbar region (principal); Z98.1 Arthrodesis status
CPT/HCPCS: 72110; 72158; A9577

== ENCOUNTER 2024-11-14 13:27 | Emergency (ER) | payer OTHER, SELFPAY ==
--- NOTE | 2024-11-14 13:28 | ED_ITS ---
HPI - Skin/Abscess/Foreign Bdy General Chief complaint: Skin/Abscess/Foreign Body Stated complaint: hives Time Seen by Provider: 11/14/24 13:28 Source: patient Mode of arrival: ambulatory Limitations: no limitations History of Present Illness HPI narrative: Emily is a 54 year old female patient presenting to the clinic today with c/o itchy, raised, scaly rash to the right posterior hip and the bilateral anterior medial breast. She reports red itchy rash x4 days. Thinks it may be hives. Has been applying calamine lotion over the area. Denies any environmental changes, soaps, lotions, detergents, foods, or medications. Rash is not painful. No drainage coming from the rash. No fevers, chills, body aches. Denies any shortness of breath or chest pain. Related Data Home Medications ?Medication ?Instructions ?Recorded ?Confirmed ?Last Taken ?Type lorazepam 0.5 mg tablet 0.5 mg PO HS PRN Anxiety 04/03/20 12/13/23 Unknown History acyclovir 400 mg tablet 400 mg PO DAILY 04/14/21 12/13/23 Unknown History sertraline 100 mg tablet 150 mg PO DAILY 04/14/21 12/13/23 Unknown History acetaminophen 500 mg capsule 500 mg PO ONCE PRN Pain, Mild 05/08/23 12/13/23 Unknown History omeprazole 20 mg capsule,delayed 20 mg PO BID 05/08/23 12/13/23 Unknown History release cetirizine 10 mg tablet (Zyrtec) 10 mg PO DAILY 12/13/23 12/13/23 Unknown History vibegron 75 mg tablet (Gemtesa) 75 mg PO DAILY 12/13/23 12/13/23 Unknown History phentermine 30 mg capsule 30 mg PO DAILY 08/12/24 Unknown History aripiprazole .ROUTE 11/14/24 Unknown History Allergies Allergy/AdvReac Type Severity Reaction Status Date / Time amoxicillin (From Augmentin) Allergy Unknown Unknown Verified 11/14/24 13:38 clavulanic acid (From Allergy Unknown Unknown Verified 11/14/24 13:38 Augmentin) Review of Systems Review of Systems: Pertinent positives per HPI. Patient denies any fever, chills,headache, visual changes, dizziness, cough, runny nose, sore throat, shortness of breath, chest pain, palpitations, nausea, vomiting, diarrhea, constipation, abdominal pain, or any urinary issues. [facility] Past Medical History Medical History Depression Hidradenitis removal of cysts bilateral axilla Diverticulitis Surgical History Surgical History Hx of spinal surgery 2006 lumbar cage Family History Family History Father Depression Heart disease Mother Hypertension Depression Grandparent Alcoholism Social History Social History Smoking status: Never smoker Alcohol intake: never Substance use: never Substance use type: does not use Do You Feel Safe in your Home?: Yes Lack of Transportation: No Lack of Food: Never True Current Housing: I Have Housing Concerned About Future Housing: No Difficulty Paying Gas/Electric Bills: No Difficulty Paying for Meds: No Currently Unemployed: No Education: Master's Degree or Higher Difficulty w/ Childcare or Family Care: No Living arrangements: with family Gender identity (if verbalized by the patient): Female Comments At the time of my signature, I reviewed and agree with the nursing past medical, surgical, social, and family history. There is no relevant family history pertinent to the patient complaint. Exam Narrative: General: Well-developed, well nourished, in no apparent distress Head: Normocephalic, atraumatic. Cardio: Regular rate and rhythm, s1 and s2 normal, no murmur appreciated. Resp: Clear to auscultation bilaterally, no rhonchi, rales, wheezing or rubs. Integumentary: [place], warm, and dry, red, raised, scaly, itchy rash to the right upper posterior hip and the bilateral medial anterior breast. Course Course Emergency Course: Portions of this record may have been created with voice recognition software. Level of Care: Express Care Visit Vital Signs Vital signs: Vital Signs Temperature 36.7 C 11/14/24 13:30 Pulse Rate 82 11/14/24 13:30 Respiratory Rate 16 11/14/24 13:30 Blood Pressure 122/76 11/14/24 13:30 Pulse Oximetry 99 11/14/24 13:30 Oxygen Delivery Room Air 11/14/24 13:30 Temperature 36.7 C 11/14/24 13:30 Pulse Rate 82 11/14/24 13:30 Respiratory Rate 16 11/14/24 13:30 Blood Pressure 122/76 11/14/24 13:30 Pulse Oximetry 99 11/14/24 13:30 Oxygen Delivery Room Air 11/14/24 13:30 Vital signs reviewed MDM - Skin/Abscess/Foreign Bdy MDM Narrative Medical decision making narrative: At the time of visit patient is resting comfortably on the exam table. Patient appears to be nontoxic. c/o itchy, raised, scaly rash to the right posterior hip and the bilateral anterior medial breast. She reports red itchy rash x4 days. Thinks it may be hives. Has been applying calamine lotion over the area. Denies any environmental changes, soaps, lotions, detergents, foods, or medications. Rash is not painful. No drainage coming from the rash. No fevers, chills, body aches. On exam patient has a red, raised, scaly rash to the right posterior hip and bilateral anterior medial breast Plan: I suspect patient has dermatitis. Prescription for prednisone and triamcinolone cream was sent to the pharmacy. Supportive measures were discussed with the patient and they voiced understanding discharge instructions and agrees to treatment plan. Return precautions reviewed Differential Diagnosis Differential diagnosis: Likely abscess of skin or subcutaneous tissue, viral exanthem, dermatophytosis, urticaria, herpes zoster, allergic reaction to drug, cellulitis, eczema, insect bites, impetigo and contact dermatitis Discharge Plan Discharge Clinical Impression: Dermatitis Patient Disposition: Home Condition: Stable Instructions: Antibiotic Form, Dermatitis (ED) Additional Instructions: Take prednisone as directed Apply triamcinolone cream as directed Avoid hot showers Avoid scratching as this can cause a secondary infection May take Benadryl 25-50mg every 6 hours as needed for itching. May apply cool compresses over the area to help alleviate itching Follow up with your PCP in 3-5 days if symptoms persist or sooner if they worsen Go to the Emergency Room if symptoms worsen- fever, rash spreading with treatment, shortness of breath, tongue swelling, drooling, or chest pain Patient Language: Palestinian Prescriptions: New prednisone 20 mg tablet 40 mg PO DAILY 5 Days Qty: 10 0RF triamcinolone acetonide 0.1 % cream 1 applic topical BID 7 Days Qty: 30 0RF No Action sertraline 100 mg tablet 150 mg PO DAILY acyclovir 400 mg Tablet 400 mg PO DAILY Rx Instructions: TAKE NEEDED FOR CANKER SORES aripiprazole .ROUTE lorazepam 0.5 mg Tablet 0.5 mg PO HS PRN (Reason: Anxiety) Gemtesa 75 mg Tablet 75 mg PO DAILY cetirizine [Zyrtec] 10 mg Tablet 10 mg PO DAILY phentermine 30 mg capsule 30 mg PO DAILY Rx Instructions: must administer 2 hours after breakfast omeprazole 20 mg capsule,delayed release(DR/EC) 20 mg PO BID acetaminophen 500 mg capsule 500 mg PO ONCE PRN (Reason: Pain, Mild) Follow-up/Referrals: Michele,Jose Schultz MD [Primary Care Provider] - Time of Disposition: 13:40 Quality NIHSS Nursing Documentation ED NIHSS nursing documentation: reviewed/agree
--- OUTSIDE RECORDS SUMMARY | 2024-11-14 13:29 | XMS_ITS | Encounter Summary ---
Author Organization [facility] Address 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 Name Role Phone Jose Bautista MD Primary Care Provider [phone] Encounter Details Date Type Department Care Team (Latest Contact Info) Description 05/07/2005 Outpatient Historical [facility] Angela, Fiorella Mayo MD [address] [place] [phone] SCREENING MAMM-MAILG NEOPL NEC (Primary Dx) Social History Tobacco Use Types Packs/Day Years Used Date Smoking Tobacco: Never Assessed Comments Unknown Sex and Gender Information Value Date Recorded Sex Assigned at Not on file Legal Sex Female 5:11 AM [employer] Gender Identity Not on file Sexual Orientation Not on file documented as of this encounter Plan of Treatment Not on file documented as of this encounter Visit Diagnoses Diagnosis Other screening mammogram- Primary documented in this encounter Care Teams Boat Engine Mechanic Relationship Specialty Start Date End Date Jose Bautista MD [address] [place] [address] [facility] [address] [place] [id number] PCP - General Internal Medicine 02/18/12 documented as of this encounter
--- OUTSIDE RECORDS SUMMARY | 2024-11-14 13:29 | XMS_ITS | Clinical Summary ---
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 Gender Identity Not on file Sexual Orientation [...] of 3 - 19+ 3-dose series) 1991 Pap Smear 1993 Cervical Cancer Screening (CCS) 2002 HPV/Cotest 2002 Cologuard 2017 Colonoscopy 2017 Colorectal Cancer Screening 2017 Immunochemical Fecal Occult Blood 2017 Pneumococcal Immunization (5 0+ years) (1 of 1 - PCV) 2022 Zoster Immunization (1 of 2) 2022 SARS-COV-2 Immunization (4 - season) 2023 01/31/2021, 06/21/2020, 05/19/2020 Influenza Immunization (#1) 2024 Respiratory Syncytial Virus (RSV) Immunization (Adult) (1 - 1-dose 75+ series) 2047 Human Papillomavirus (HPV) Immunization Aged Out No longer eligible b ased on patient's age to complete this topic Meningococcal Immunization (ACWY) Aged Out No longer eligible b ased on patient's age to complete this topic Rotavirus Immunization Aged Out No lo nger eligible based on patient's age to complete this topic Additional Health Concerns Infection Onset Date Last Indicated 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 [address] [place] [id number] PCP - General Internal Medicine 03/25/17
--- OUTSIDE RECORDS SUMMARY | 2024-11-14 13:29 | XMS_ITS | Clinical Summary ---
Author Organization [facility] Address [address] [place] [address] Phone Care Team Providers Care Bookkeeping Clerk Name Role Phone Jose Bautista MD Primary Care Provider [phone] Allergies No known active allergies Medications NABUMETONE ORALIndications:Sc reening for malignant neoplasm of the cervix,Routine gynecological examination Take by mouth. Active escitalopram (LEXAPRO) 10 mg Oral tabletIndications: Screening for malignant neoplasm of the cervix,Routine gynecological examination Take 10 mg by mouth daily. Active ALPRAZolam (XANAX) 0.5 mg tablet 09/26/2014 Activ e Active Problems No known active problems Family History Medical History Relation Name Comments Other Father myleodysplasia Breast Cancer Maternal Grandmother age of onset 60's or 70's Cancer Maternal Grandmother breast cancer Ovarian Cancer Neg Hx Relation Name Status Comments Father Maternal Grandmother Social History Tobacco Use Types Packs/Day Years Used Date Smoking Tobacco: Never Smokeless Tobacco: Never Alcohol Use Standard Drinks/Week Comments No 0 (1 standard drink = 0.6 oz pur e alcohol) Comments No Sex and Gender Information Value Date Recorded Sex Assigned at Not on file 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 Gender Identity Not on file Sexual Orientation Not on file Occupation Industry Job Start Date Job End Date Not on file Not on file Not on file Not on file Last Filed Vital Signs Vital Sign Reading Time Taken Comments Blood Pressure 122/80 11/09/2014 9:03 AM CDT Pulse - - Temperature - - Respiratory Rate - - Oxygen Saturation - - Inhaled Oxygen Concentration - - Weight 81.2 kg (179 lb) 11/09/2014 9:03 AM CDT Height 162.6 cm (5' 4) 11/09/2014 9:03 AM CDT Body Mass Index 30.73 11/09/2014 9:03 AM CDT Plan of Treatment Health Maintenance Due Date Last Done Comments DTAP/TDAP/TD VACCINES (1 - Tdap) 1991 HEPATITIS B VACCINES (1 of 3 - 19+ 3-dose series) 1991 BREAST CANCER SCREENING 11/10/2015 11/09/2014, 11/09 PAP SMEAR 11/09/2016 11/09/2013, 02/18/2012 COLORECTAL SCREENING 2017 Colorectal Cancer Screening 2017 FIT-DNA Q 3 years 2017 FIT/FOBT Q 1 year 2017 Flex Sig/CT Colonography Q 5 years 2017 CERVICAL CANCER SCREENING 11/09/2018 HPV/Cotest (21-29) 11/09/2018 11/09/2013 HPV/Cotest (30-65) 11/09/2018 11/09/2013 ZOSTER VACCINE (1 of 2) 2022 INFLUENZA VACCINE (#1) 2024 Procedures Procedure Name Priority Date/Time Associated Diagnosis Comments MAMMO SCREEN BILAT W OR WO CAD Routine 11/09/2014 9:47 AM CDT Other screening mammogram CERV/VAG CYTOPATH, THIN PREP PLAN EXAMINER AND HPV Routine 11/09/2013 8:52 AM CDT Screening for malignant neoplasm of the cervix from Last 3 Months or Most Recently Relevant to Health Maintenance Results * MAMMO DIGITAL SCREEN BILAT (11/09/2014 9:47 AM CDT) Anatomical Region Laterality Modality Breast Bilateral Mammography Narrative 11/09/2014 10:54 AM CDT Bilateral digital screening mammogram with computer assisted diagnosis History: Annual screening exam. Findings: A bilateral screening mammogram was performed. Comparison is made to : 11/09/2013 There are scattered fibroglandular densities. No new masses, suspicious calcifications, or areas of asymmetry or distortion are identified. CAD was utilized. Impression: Negative screening mammogram. Recommendation: Routine annual follow-up Overall Assessment: Birads Category 1: Negative us Fiorella L Botney MD MAMMO ORDERABLES Final Resul t * CERV/VAG CYTOPATH, THIN PREP PLAN EXAMINER AND HPV (11/09/2013 8:52 AM CDT) LAST MENSTRUAL PERIOD 11/01/13 [facility] HPV E6/E7 Not Detected Not Detected [facility] Comment: This test was performed using the APTIMA HPV Assay ([employer] This assay detects E6/E7 viral messenger RNA (mRNA) from 14 high-risk HPV types (16,18,31,33,35,39,45,51,52,56,58,59,66,68). Lab test performed by: [facility] [address] [place] [address] LLUVIA HIGH MD PAP INTERP Negative for intraepithelial lesion or malignancy. [facility] Comment: Performed by [facility], [address] [place] [address] CYTOLOGY INFECTION Fungal organisms morphologically consistent with Jaycee spp. [facility] Motor Racer Pap Comment This Pap test has been evaluated with computer assisted technology. [facility] ADEQUACY: Satisfactory for evaluation. Endocervical/ray sformation zone component present. [facility] CLINICAL INFORMATION Information not provided [facility] SOURCE Endocervix [facility] PREV PAP: INFORMATION NOT PROVIDED [facility] PERSONAL DRIVER : LESLIE CT(ASCP) [facility] PREV BX: INFORMATION NOT PROVIDED [facility] Endocervical 11/09/2013 8:52 AM CDT 11/09/2013 3:32 PM CDT Comment:ENDOCERVICAL Narrative [facility] - 11/13/2013 1:16 PM CDT ecc Ashley Rosales NP PATHOLOGY/CYTOLOGY ORDERABL ES Edited Result - Final [facility] Wayger [facility] CLIA# [id number] [address] [facility] [place] [id number] from Last 3 Months or Most Recently Relevant to Health Maintenance Care Teams Bookkeeping Clerk Relationship Specialty Start Date End Date Jose Bautista MD [address] [place] [address] [address] [facility] [place] [address] PCP - General Internal Medicine 02/18/12
[2024-11-14 13:30] VITALS: BP 122/76; PULSE 82; RESP 16; TEMP 36.7; O2SAT 99
== END 2024-11-14 13:43 | disposition home or self-care (01) ==
PROVIDERS: Emergency Provider Nurse Practitioner Family; PCP Internal Medicine
DX: L30.9 Dermatitis, unspecified (principal); F32.A Depression, unspecified
CPT/HCPCS: 99213; G0463

== ENCOUNTER 2025-02-24 13:29 | Emergency (ER) | payer OTHER, SELFPAY ==
[2025-02-24 13:41] VITALS: BP 147/86; PULSE 73; RESP 16; TEMP 36.8; O2SAT 99
--- NOTE | 2025-02-24 14:13 | ED.WOUNDLAC ---
HPI - Wound/Laceration General Chief Complaint: Wound/Laceration Stated Complaint: rash on neck and chest Time Seen by Provider: 02/24/25 14:04 Source: patient and RN notes reviewed Mode of arrival: ambulatory Limitations: no limitations History of Present Illness HPI narrative: 54-year-old female patient presents today complaining of a severely pruritic rash to the bilateral postauricular area, chest, and right axilla x1 week. She has been taking Benadryl and using a topical cream that was prescribed by her drupal developer without relief. Denies any changes in products or new exposures as she know she has sensitive skin. Related Data Home Medications ?Medication ?Instructions ?Recorded ?Confirmed ?Last Taken ?Type lorazepam 0.5 mg tablet 0.5 mg PO HS PRN Anxiety 04/03/20 12/13/23 Unknown History acyclovir 400 mg tablet 400 mg PO DAILY 04/14/21 12/13/23 Unknown History sertraline 100 mg tablet 150 mg PO DAILY 04/14/21 12/13/23 Unknown History acetaminophen 500 mg capsule 500 mg PO ONCE PRN Pain, Mild 05/08/23 12/13/23 Unknown History omeprazole 20 mg capsule,delayed 20 mg PO BID 05/08/23 12/13/23 Unknown History release cetirizine 10 mg tablet (Zyrtec) 10 mg PO DAILY 12/13/23 12/13/23 Unknown History vibegron 75 mg tablet (Gemtesa) 75 mg PO DAILY 12/13/23 12/13/23 Unknown History aripiprazole .ROUTE 11/14/24 Unknown History Allergies Allergy/AdvReac Type Severity Reaction Status Date / Time amoxicillin (From Augmentin) Allergy Unknown Unknown Verified 02/24/25 13:49 clavulanic acid (From Allergy Unknown Unknown Verified 02/24/25 13:49 Augmentin) [facility] Past Medical History Medical History Depression Hidradenitis removal of cysts bilateral axilla Diverticulitis Surgical History Surgical History Hx of spinal surgery 2006 lumbar cage Family History Family History Father Depression Heart disease Mother Hypertension Depression Grandparent Alcoholism Social History Social History Smoking status: Never smoker Alcohol intake: never Substance use: never Substance use type: does not use Do You Feel Safe in your Home?: Yes Lack of Transportation: No Lack of Food: Never True Current Housing: I Have Housing Concerned About Future Housing: No Difficulty Paying Gas/Electric Bills: No Difficulty Paying for Meds: No Currently Unemployed: No Education: Master's Degree or Higher Difficulty w/ Childcare or Family Care: No Living arrangements: with family Gender identity (if verbalized by the patient): Female Comments At time of signature, I have reviewed and agree with nursing past medical, surgical, social and family history unless otherwise noted. Please see nursing chart for further information. There is no relevant family history pertinent to the presenting complaint Exam Narrative: GENERAL: Well-appearing, well-nourished, and in no acute distress. HEAD: Normocephalic, atraumatic. EYES: EOMI. No redness or drainage. Conjunctivae normal. ENT: Mucous membranes pink and moist. NECK: Normal AROM. CHEST: No respiratory distress. EXTREMITIES: Normal range of motion. No edema. SKIN: Warm, dry. Capillary refill normal. Normal skin turgor. Tiny papules to the bilateral neck and post auricular areas as well as the right superior breast area, consistent with contact dermatitis. No induration, drainage, vesicles, or crusting noted. NEURO: No focal deficits. Alert and oriented x3. Gait steady. PSYCH: Normal affect. No signs of depression or anxiety. Course Course Level of Care: Express Care Visit Vital Signs Vital signs: Vital Signs Temperature 98.2 F 02/24/25 13:41 Pulse Rate 73 02/24/25 13:41 Respiratory Rate 16 02/24/25 13:41 Blood Pressure 147/86 H 02/24/25 13:41 Pulse Oximetry 99 02/24/25 13:41 Oxygen Delivery Room Air 02/24/25 13:41 Temperature 98.2 F 02/24/25 13:41 Pulse Rate 73 02/24/25 13:41 Respiratory Rate 16 02/24/25 13:41 Blood Pressure 147/86 H 02/24/25 13:41 Pulse Oximetry 99 02/24/25 13:41 Oxygen Delivery Room Air 02/24/25 13:41 Reviewed MDM - Wound/Laceration MDM Narrative Medical decision making narrative: 54-year-old female patient presents today complaining of a severely pruritic rash to the bilateral postauricular area, chest, and right axilla x1 week. She has been taking Benadryl and using a topical cream that was prescribed by her drupal developer without relief. Denies any changes in products or new exposures as she know she has sensitive skin. Upon exam, Tiny papules to the bilateral neck and post auricular areas as well as the right superior breast area, consistent with contact dermatitis. No induration, drainage, vesicles, or crusting noted. Patient will be prescribed a short course of prednisone and some hydroxyzine since the Benadryl was not working well. Patient agrees with plan. Vital signs stable. Anticipatory guidance given. Differential Diagnosis Differential diagnosis: Likely other (Contact dermatitis, urticaria, impetigo, viral exanthem) Critical Care Time Critical Care Time Critical Care Time: No Discharge Plan Discharge Clinical Impression: Dermatitis Patient Disposition: Home Condition: Stable Instructions: Dermatitis (ED) Additional Instructions: Please take the prednisone and hydroxyzine as directed. If your taking the hydroxyzine, do not take any additional Benadryl or other antihistamines. Follow-up with your PCP or drupal developer next week if symptoms persist. Patient Language: Taiwanese Prescriptions: New prednisone 50 mg tablet 50 mg PO DAILY 5 Days Qty: 5 0RF hydroxyzine HCl 50 mg tablet 50 mg PO QID PRN (Reason: itching) Qty: 20 0RF No Action sertraline 100 mg tablet 150 mg PO DAILY acyclovir 400 mg Tablet 400 mg PO DAILY Rx Instructions: TAKE NEEDED FOR CANKER SORES aripiprazole .ROUTE triamcinolone acetonide 0.1 % cream 1 applic topical BID 7 Days Qty: 30 0RF lorazepam 0.5 mg Tablet 0.5 mg PO HS PRN (Reason: Anxiety) Gemtesa 75 mg Tablet 75 mg PO DAILY cetirizine [Zyrtec] 10 mg Tablet 10 mg PO DAILY omeprazole 20 mg capsule,delayed release(DR/EC) 20 mg PO BID acetaminophen 500 mg capsule 500 mg PO ONCE PRN (Reason: Pain, Mild) Follow-up/Referrals: Michele,Jose Schultz MD [Primary Care Provider] Time of Disposition: 14:13
--- OUTSIDE RECORDS SUMMARY | 2025-02-24 20:11 | XMS_ITS | Clinical Summary ---
Author Organization 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 [place] Gender Identity Not on file Sexual Orientation [...] Virus (HCV) Screening 1972 TdaP Immunization 1972 Varicella Immunization (1 of 2 - 13+ 2-dose series) 1985 Hepatitis B Immunization (1 of 3 - 19+ 3-dose series) 1991 Pap Smear 1993 Cervical Cancer Screening (CCS) 2002 HPV/Cotest 2002 Cologuard 2017 Colonoscopy 2017 Colorectal Cancer Screening 2017 Immunochemical Fecal Occult Blood 2017 Pneumococcal Immunization (5 0+ years) (1 of 1 - PCV) 2022 Zoster Immunization (1 of 2) 2022 Influenza Immunization (#1) 2024 SARS-COV-2 Immunization ( - season) 2024 01/31/2021, 06/21/2020, 05/19/2020 Respiratory Syncytial Virus (RSV) [...] Last Indicated MRSA 03/25/2017 03/25/2017 Care Teams Defect Repairer Glassware Relationship Specialty Start Date End Date Jose Bautista MD [address] [place] [address] [place] [address] PCP - General Internal Medicine 03/25/17
== END 2025-02-24 14:26 | disposition home or self-care (01) ==
PROVIDERS: Emergency Provider Nurse Practitioner; PCP Internal Medicine
DX: L30.9 Dermatitis, unspecified (principal); F32.A Depression, unspecified
CPT/HCPCS: 99213; G0463

== ENCOUNTER 2025-03-08 15:27 | Emergency (ER) | payer OTHER, SELFPAY ==
[2025-03-08 15:30] VITALS: BP 142/93; PULSE 106; RESP 20; TEMP 36.8; O2SAT 98
--- NOTE | 2025-03-08 15:36 | ED.SKABFB ---
HPI - Skin/Abscess/Foreign Bdy General Chief complaint: Skin/Abscess/Foreign Body Stated complaint: Rash Time Seen by Provider: 03/08/25 15:37 Source: patient, RN notes reviewed and old records reviewed Mode of arrival: ambulatory Limitations: no limitations History of Present Illness HPI narrative: 55 year old female who presents to [facility] care with complaints of continued rash which she has been dealing with since the of this month. Patient reports no new contacts, foods, medications or skin products. patient reports that rash is extremely itchy. Patient was suppose to have follow up with PCP but was canceled due to weather. Patient reports that she was treated with Steroids for 5 days on the which were helping then increased rash noted, has been using Calamine lotion and taking Zyrtec daily and also taking some hydroxyzine, Patient has rash noted to bilateral neck and to the right upper breast and chest area that is severly pruritic. MD complaint: rash Onset (ago): day(s) (12 days) Severity: moderate Quality: pruritic Treatments prior to arrival: OTC topical medication (calamine) and other (zyrtec, hydroxyzine) Related Data Home Medications ?Medication ?Instructions ?Recorded ?Confirmed ?Last Taken ?Type lorazepam 0.5 mg tablet 0.5 mg PO HS PRN Anxiety 04/03/20 12/13/23 Unknown History acyclovir 400 mg tablet 400 mg PO DAILY 04/14/21 12/13/23 Unknown History sertraline 100 mg tablet 150 mg PO DAILY 04/14/21 12/13/23 Unknown History acetaminophen 500 mg capsule 500 mg PO ONCE PRN Pain, Mild 05/08/23 12/13/23 Unknown History omeprazole 20 mg capsule,delayed 20 mg PO BID 05/08/23 12/13/23 Unknown History release cetirizine 10 mg tablet (Zyrtec) 10 mg PO DAILY 12/13/23 12/13/23 Unknown History vibegron 75 mg tablet (Gemtesa) 75 mg PO DAILY 12/13/23 12/13/23 Unknown History aripiprazole .ROUTE 11/14/24 Unknown History Allergies Allergy/AdvReac Type Severity Reaction Status Date / Time amoxicillin (From Augmentin) Allergy Unknown Unknown Verified 02/24/25 13:49 clavulanic acid (From Allergy Unknown Unknown Verified 02/24/25 13:49 Augmentin) Review of Systems Review of Systems: CONSTITUTIONAL: Denies fever, chills, or sweats. CARDIOVASCULAR: Denies chest pain, palpitations, or edema. RESPIRATORY: Denies cough or dyspnea. SKIN: Reports rash to the bilateral neck region and to the right upper breast chest area which is pruritic MUSCULOSKELETAL: Denies joint pain or myalgia. NEUROLOGIC: Denies headache, numbness, or weakness. All systems reviewed & are unremarkable except as noted in HPI and below PMFSH Past Medical History Medical History (Updated 03/09/25 @ 17:43 by Yaa Hawthorne APRN) Urticaria GERD (gastroesophageal reflux disease) Anxiety Depression Hidradenitis removal of cysts bilateral axilla Diverticulitis Surgical History Surgical History Hx of spinal surgery 2006 lumbar cage Family History Family History Father Depression Heart disease Mother Hypertension Depression Grandparent Alcoholism Social History Social History Smoking status: Never smoker Alcohol intake: never Substance use: never Substance use type: does not use Lack of Transportation: No Lack of Food: Never True Current Housing: I Have Housing Concerned About Future Housing: No Difficulty Paying Gas/Electric Bills: No Difficulty Paying for Meds: No Currently Unemployed: No Education: Master's Degree or Higher Difficulty w/ Childcare or Family Care: No Living arrangements: with family Gender identity (if verbalized by the patient): Female Comments At time of signature, agree with nursing past medical, surgical, social and family history. There is no relevant family history pertinent to the presenting complaint Exam Narrative: GENERAL: Well-appearing, well-nourished, and in some acute distress. HEAD: Normocephalic, atraumatic. EYES: PERRLA, conjunctivae clear, and EOMI. ENT: Mucous membranes moist. Oropharynx without edema, erythema or lesions.TM's normal with good light reflex NECK: Supple. No lymphadenopathy CHEST: Clear to auscultation. No respiratory distress. no cough noted SAO2 98% on room air HEART: Regular rate and rhythm. SKIN: Warm, dry.? Patches of small red raised papules on the sides of neck and to right upper breast area and chest, no vesicles or pustules noted, no drainage, induration or crusting noted, rash is extremely pruritic NEURO:? Alert and oriented x3. PSYCH: Normal mood and affect MDM Differential Diagnosis Differential Diagnosis: contact dermatitis, pruritic rash, urticaria, viral exanthem Critical Care Time Critical Care Time Critical Care Time: No Discharge Plan Discharge Clinical Impression: Contact dermatitis Qualifiers: Contact dermatitis type: unspecified Contact dermatitis trigger: unspecified trigger Qualified Code(s): L25.9 - Unspecified contact dermatitis, unspecified cause Patient Disposition: Home Condition: Stable Instructions: Antibiotic Form, Prednisone (By mouth), Contact Dermatitis (ED) Additional Instructions: triamcinolone ointment to rash twice daily never apply this to the face watch for any signs of infection--redness, swelling, drainage Tylenol for pain Zyrtec daily and Pepcid 20 mg daily for 10 days follow up with PCP in 7-10 days for a wound check recheck if develop fever, chills, increasing symptom Go to the ER if your symptoms become worse of if ANY new symptoms develop Steroid taper take as prescribed continue hydroxyzine as needed for itching If your symptoms persist, change or worsen significantly before you can contact your personal physician then please, without delay, go to the emergency department for further evaluation. Follow-up with PCP in 7-10 days or sooner if needed Follow up with PCP soon in regards to your blood pressure which is elevated above threshold for referral. Blood pressure above 120/80 may indicate pre-hypertension.142/93 Patient Language: Vincentian Prescriptions: New triamcinolone acetonide 0.1 % ointment 1 applic topical BID Qty: 80 0RF Rx Instructions: apply to rash 2 times daily never apply this to the face. Can only use 14 days consequently prednisone 10 mg tablet 10 mg PO DIRECTED Qty: 42 0RF Rx Instructions: see taper instructions 60 mg for 2 days, then 50 mg 2 days, 40 mg 2 days, 30 mg 2 days, 20 mg 2 days, 10 mg for 2 days famotidine [Pepcid] 20 mg tablet 20 mg PO DAILY Qty: 10 0RF No Action sertraline 100 mg tablet 150 mg PO DAILY acyclovir 400 mg Tablet 400 mg PO DAILY Rx Instructions: TAKE NEEDED FOR CANKER SORES aripiprazole .ROUTE triamcinolone acetonide 0.1 % cream 1 applic topical BID 7 Days Qty: 30 0RF hydroxyzine HCl 50 mg tablet 50 mg PO QID PRN (Reason: itching) Qty: 20 0RF lorazepam 0.5 mg Tablet 0.5 mg PO HS PRN (Reason: Anxiety) Gemtesa 75 mg Tablet 75 mg PO DAILY cetirizine [Zyrtec] 10 mg Tablet 10 mg PO DAILY omeprazole 20 mg capsule,delayed release(DR/EC) 20 mg PO BID acetaminophen 500 mg capsule 500 mg PO ONCE PRN (Reason: Pain, Mild) Follow-up/Referrals: Michele,Jose Schultz MD [Primary Care Provider] Time of Disposition: 16:01 Quality [place] Coma Scale Eyes: Open Verbal: Oriented and Alert Motor: Follows Commands Santosh Coma Total Score: 15
--- OUTSIDE RECORDS SUMMARY | 2025-03-08 15:55 | XMS_ITS | Encounter Summary ---
Author Organization [facility] Address [address] [place] [address] Phone Care Team Providers Care Cardiographer Name Role Phone Jose Bautista MD Primary Care Provider Marge Vital MD Unavailable [phone] Encounter Details Date Type Department Care Team (Late st Contact Info) Description 03/28/2020 Orders Only [facility] [address] [place] [address] Scanning, Provider Social History Tobacco Use Types Packs/Day Years Used Date Smoking Tobacco: Never Smokeless Tobacco: Never Alcohol Use Standard Drinks/Week Comments No 0 (1 standard drink = 0.6 oz pur e alcohol) PHQ-2 Answer Date Recorded PHQ-2 Score 0 01/19/2019 Comments No Sex and Gender Information Value Date Recorded Sex Assigned at Not on file 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 Sex Female 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 Gender Identity Not on file Sexual Orientation Not on file 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 Not on file Not on file documented as of this encounter Functional Status * In the past year, patient experienced: Question Answer Date of Assessment Author One or more falls in the last year No 2019 10:28 AM Aurora Schneider MA * BP Location Answer Date of Assessment Author Left arm 03/28/2020 10:24 AM Bhakti Schneider MA * BP Location Answer Date of Assessment Author Left arm 03/28/2020 10:24 AM Bhakti Schneider MA documented as of this encounter Plan of Treatment Not on file documented as of this encounter Procedures Procedure Name Priority Date/Time Associated Diagnosis Comments SCAN - LABS 03/28/2020 documented in this encounter Results * SCAN - LABS (03/28/2020) us Provider Scanning Final Result documented in this encounter Visit Diagnoses Not on filedocumented in this encounter Care Teams Cardiographer Relationship Specialty Start Date End Date Jose Bautista MD PCP - General 10/27/09 [place] [id number] [place] [address] Consulting Physician Neurosurgery 08/26/23 documented as of this encounter
--- OUTSIDE RECORDS SUMMARY | 2025-03-08 15:55 | XMS_ITS | Encounter Summary ---
Author Organization [facility] Healthcare Address [address] [place] [address] Care Team Providers Care Chemical Preparer Name Role Phone Jose Bautista MD Primary Care Provider Marge Vital MD Unavailable [phone] Encounter Details Date Type Department Care Team (Late st Contact Info) Description 03/08/2025 Telephone [facility] Medical [facility] Primary Care at [address] [place] [address] Jose Bautista MD [address] [place] [address] [address] [place] [address] Social History Tobacco Use Types Packs/Day Years Used Date Smoking Tobacco: Never Smokeless Tobacco: Never Alcohol Use Standard Drinks/Week Comments No 0 (1 standard drink = 0.6 oz pur e alcohol) [facility] Utilities Answer Date Recorded In the past 12 months has [employer], gas, oil, or water co[employer]banize threatened to shut off services in your home? No 08/19/2023 Social Connection and Isolation Panel Answer Date Recorded In a typical week, how many times do you talk on the phone with family, friends, or neighbors? More than three times a week 08/19/2023 How often do you get togethe r with friends or relatives? More than three times a week 08/19/2023 How often do you attend chur or latter-day services? 1 to 4 times per year 08/19/2023 Do you belong to any clubs o r organizations such as scientologist groups, unions, fraternal or athletic groups, or school groups? Yes 08/19/2023 How often do you attend meet ings of the clubs or organizations you belong to? 1 to 4 times per year 08/19/2023 Are you , , di vorced, , never , or living with a partner? 08/19/2023 AUDIT-C Answer Date Recorded Q1: How often do you have a drink containing alcohol? Never 09/29/2024 Q2: How many drinks containi ng alcohol do you have on a typical day when you are drinking? Patient does not drink Q3: How often do you have si x or more drinks on one occasion? Never 09/29/2024 Overall Financial Resource Strain (CARDIA) Answe r Date Recorded How hard is it for you to pa y for the very basics like food, housing, medical care, and heating? Not hard at all 08/19/2023 PHQ-2 Answer Date Recorded PHQ-2 Total Score (If total score is 3 or more points, staff should administer the PHQ-9) 0 10/02/2024 Hunger Vital Sign Answer Date Recorded Within the past 12 months, y ou worried that your food would run out before you got the money to buy more. Never true 08/19/19 24 Within the past 12 months, t he food you bought just didn't last and you didn't have money to get more. Never true 08/19/2023 PRAPARE - Transportation Answer Date Re corded In the past 12 months, has l ack of transportation kept you from medical appointments or from getting medications? No 08/06 In the past 12 months, has l ack of transportation kept you from meetings, work, or from getting things needed for daily living? No 08/19/2023 Housing Stability Vital Sign Answer Rico e Recorded In the last 12 months, was t here a time when you were not able to pay the mortgage or rent on time? No 08/19/2023 In the last 12 months, how many places have you lived? 1 08/19/2023 In the last 12 months, was t here a time when you did not have a steady place to sleep or slept in a halfway (including now)? No 08/19/2023 PHQ-9 Answer Date Recorded Patient Health Questionnaire-9 Score 3 08/19/2023 Personal Safety Answer Date Recorded Have you ever been in or are you currently in a harmful physical or emotional relationship or is someone making you feel afraid or unsafe? 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 Cancelled pt's appt but she would like to call back to reschedule. LL MACHINE OPERATOR documented in this encounter Plan of Treatment Not on file documented as of this encounter Visit Diagnoses Not on filedocumented in this encounter Care Teams Chemical Preparer Relationship Specialty Start Date End Date Jose Bautista MD PCP - General 10/27/09 [place] [id number] [place] [address] Consulting Physician Neurosurgery 08/26/23 documented as of this encounter
--- OUTSIDE RECORDS SUMMARY | 2025-03-08 15:55 | XMS_ITS | Clinical Summary ---
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 Gender Identity Not on file Sexual Orientation [...] Other screening mammogram CERV/VAG CYTOPATH, THIN PREP GRAIN ELEVATOR SUPERINTENDENT AND HPV Routine 11/09/2013 8:52 AM CDT [...] follow-up Overall Assessment: Birads Category 1: Negative Fiorella Angela MD MAMMO ORDERABLES Final Resul t * CERV/VAG CYTOPATH, THIN PREP GRAIN ELEVATOR SUPERINTENDENT AND HPV (11/09/2013 8:52 AM CDT) LAST MENSTRUAL PERIOD 11/01/13 [facility] HPV E6/E7 Not Detected Not Detected [facility] Comment: This test was performed using the APTIMA HPV Assay ([employer] This assay detects E6/E7 viral messenger RNA (mRNA) from 14 high-risk HPV types (16,18,31,33,35,39,45,51,52,56,58,59,66,68). Lab test performed by: [facility] [address] [place] [address] LLUVIA HIGH MD PAP INTERP Negative for intraepithelial lesion or malignancy. [facility] Comment: Performed by its learning Laboratory, [address] [place] [address] CYTOLOGY INFECTION Fungal organisms morphologically consistent with Jaycee spp. [facility] Mold Inspector Pap Comment This Pap test has been evaluated with computer assisted technology. [facility] ADEQUACY: Satisfactory for evaluation. Endocervical/ray sformation zone component present. [facility] CLINICAL INFORMATION Information not provided [facility] SOURCE [employer] [facility] PREV PAP: INFORMATION NOT PROVIDED [facility] POTATO CHIP FRYER : CRISTIAN NELSON(ASCP) [facility] PREV BX: INFORMATION NOT PROVIDED [facility] Endocervical 11/09/2013 8:52 AM CDT 11/09/2013 3:32 PM CDT Comment:ENDOCERVICAL Narrative [facility] - 11/13/2013 1:16 PM CDT ecc Ashley Rosales NP PATHOLOGY/CYTOLOGY ORDERABL ES Edited Result - Final [facility] CLIA# [id number] [address] [place] [address] from Last 3 Months or Most Recently Relevant to Health Maintenance Care Teams Event Executive Relationship Specialty Start Date End Date Jose Bautista MD [address] [place] [address] [address] BETTS [address] [place], [place] [address] [address] PCP - General Internal Medicine 02/18/12
--- OUTSIDE RECORDS SUMMARY | 2025-03-08 15:55 | XMS_ITS | Encounter Summary ---
Author Organization [facility] Address [address] [place] [address] Care Team Providers Care Slot Key Person Name Role Phone Jose Bautista MD Primary Care Provider [phone] Encounter Details Date Type Department Care Team (Latest Contact Info) Description 05/07/2005 Outpatient Historical HIS [facility] PRABHAKAR Angela, Fiorella Mayo MD [address] [place] [phone] SCREENING MAMM-MAILG NEOPL NEC (Primary Dx) Social History Tobacco Use Types Packs/Day Years Used Date Smoking Tobacco: Never Assessed Comments Unknown Sex and Gender Information Value Date Recorded Sex Assigned at Not on file Legal Sex Female 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
--- OUTSIDE RECORDS SUMMARY | 2025-03-08 15:55 | XMS_ITS | Clinical Summary ---
Author Organization [facility] Address [address], [address] [address] Phone Care Team Providers Care Invoicing Specialist Name Role Phone Jose Bautista MD Primary [...] on file Legal Sex Female 11:09 AM SALES REP Gender Identity Not on file Sexual Orientation [...] 2022 Influenza Immunization (#1) 2024 SARS-COV-2 Immunization (4 - season) 2024 01/31/2021, 06/21/2020, 05/19/2020 Respiratory [...] Last Indicated MRSA 03/25/2017 03/25/2017 Care Teams Invoicing Specialist Relationship Specialty Start Date End Date Jose Bautista MD [address] [facility] [address]TS [address] [place] [address] PCP - General Internal Medicine 03/25/17
--- OUTSIDE RECORDS SUMMARY | 2025-03-08 15:55 | XMS_ITS | Clinical Summary ---
Author Organization [facility] A Address [address] [place] [address] Care Team Providers Care Clay Miner Name Role Phone Jose Bautista MD Primary Care Provider Marge Vital MD Unavailable Allergies Active Allergy Reactions Criticality Noted Date Comments Amoxicillin-Pot Clavulanate Rash High 04/18/19 21 Medications cetirizine (ZyrTEC) 10 mg tablet Take 1 tablet (10 mg total) by mouth daily Active sertraline (ZOLOFT) 50 mg tablet Take 3 tablets (150 mg total) by mouth daily 90 tablet 1 4 Active acetaminophen 500 mg capsule Take 1 capsule (500 mg total) by mouth every 6 (six) hours as needed for pain 4 Active omeprazole (PriLOSEC) 20 mg capsule TAKE 1 CAPSULE DAILY. 90 capsule 1 4 Active sertraline (ZOLOFT) 100 mg tablet TAKE ONE AND ONE-HALF TABLETS DAILY 135 tablet 3 4 Active vibegron (Gemtesa) 75 mg tablet Take 75 mg by mouth daily Active ARIPiprazole (ABILIFY) 5 mg tablet Take 1 tablet (5 mg total) by mouth daily To add this to her sertraline for better effect 90 tablet 3 5 05/22/19 26 Active estrogens, conjugated, (PREMARIN) vaginal creamIndication s:Postmenopausa l Urethral Atrophy Apply 1 g topically daily 30 g 5 Active cephalexin (KEFLEX) 500 mg capsule Take 1 capsule (500 mg total) by mouth daily To prevent urinary infection 30 capsule 3 5 Active ALPRAZolam (XANAX) 0.25 mg tablet Take 1 tablet (0.25 mg total) by mouth 2 (two) times a day as needed for anxiety 90 tablet 1 5 Active Active Problems Problem Noted Date Diagnosed Date Moderate episode of recurrent major depressive d isorder 10/02/2024 Assessment & Plan (10/02/2024 5:43 PM CDT): Paraplegia 08/16/2023 Epidural hematoma 08/12/2023 Diverticular disease 02/15/2023 History of diverticulitis 02/15/2023 Fatty pancreas 02/15/2023 Pain in joint involving right ankle and foot 01/2022 Assessment & Plan (02/15/2022 9:28 PM PIG FURNACE OPERATOR): 2/2 fall Likely ankle strain R.I.C.E. Aleve prn for pain and swelling with food Xray of the ankle and foot F/u next week with pcp Periumbilical pain 02/01/2022 Overview (02/01/2022): Added automatically from request for surgery [id number] Lower abdominal pain 01/25/2022 Rectal bleeding 01/18/2022 Assessment & Plan (01/18/2022 9:40 PM CDT): Likely hemorrhoids poct occult blood + Rectal exam unremarkable Referral to GI given, report to ER for worsening symptoms DDD (degenerative disc disease), lumbar 04/21/19 22 Lumbar radiculopathy 04/21/2021 Assessment & Plan (10/02/2024 5:43 PM CDT): She is working closely with pain management to see if there something for her very persistent stubborn back pain Insomnia secondary to chronic pain 04/21/2021 Sacroiliitis 04/21/2021 Right sided sciatica 03/30/2021 Tubular adenoma of colon 09/07/2020 BMI 36.0-36.9,adult 09/07/2020 Diverticulitis 04/18/2020 Arthritis 11/14/2015 Overview (07/12/2016): Arthritis Chronic idiopathic urticaria 05/24/2014 Overview (07/12/2016): Hives Assessment & Plan (11/24/2018 9:35 AM CDT): Chronic urticaria which appears to be idiopathic at this point-strongly encourage her to F/U with regarding the condition and to consider future consultation with [facility] claims adjuster w/o any alleviation in sx/further eval. Checking TSH, ESR, CBC, RUFUS, IgE levels in an attempt to identify etiology In the interim tapering corticosteroids were once again prescribed, along with daily Singulair and Zyrtec, Cnt. With p.r.n. Use of Benadryl, daily past as prior prescribed. Assessment & Plan (11/06/2018 8:37 AM CDT): Two months of uricaria, with little response from prednisone burst, famotidine, Benadryl. I encouraged tapering corticosteroids with food in the morning, continuing triamcinolone cream twice daily, Pepcid and Benadryl daily as prior prescribed. Discussion today of improving treatment for anxiety with persistent sx possibly increasing Effexor. RTC p.r.n. Assessment & Plan (12/20/2017 2:14 PM CDT): Pt was advised to use OTC antihistamines, tapering corticosteroid, corticosteroids and oatmeal baths to assist with pruritic rash. They were advised to take corticosteriods prescribed as advised and to f/u in our office with absolutely any worsening or little improvement, of rash. They were advised to f/u in our office as scheduled without any prn needs Assessment & Plan (03/21/2017 4:07 PM PIG FURNACE OPERATOR): Asymptomatic regarding urticaric rash at this time, and I recommended patient to continue last few days steroids that she has remaining and advised her not to the Benadryl any further this point time as well. We will touch base with her for any further concerns regarding condition. Assessment & Plan (03/11/2017 3:56 PM PIG FURNACE OPERATOR): Recommended corticosteroids with prednisone for course of 12 days in tapering fashion to always take with food certainly in the morning. Also prescribed triamcinolone cream to apply to the inflamed areas to assist with the acute itching certainly Benadryl was also advised to take q.i.d. p.r.n. certainly if there is any worsening of symptoms or little improvement symptoms follow up in office regarding condition Generalized osteoarthritis 08/22/2013 Overview (07/11/2016): GENERAL OSTEOARTHROSIS Anxiety state 08/22/2013 Overview (07/12/2016): ANXIETY STATE NOS Assessment & Plan (11/24/2018 9:33 AM CDT): Uncontrolled, possibly contributing to her urticaria. Switching over from Lexapro to Zoloft daily, Cnt. Effexor and ativan as prior prescribed. RTC 1 month or sooner as needed. Assessment & Plan (11/06/2018 8:38 AM CDT): Discussion of treating anxiety to assist with stress-induced urticaria. Cnt. W/ counseling, Lexapro and Effexor as prior prescribed, any increasing use of Ativan, further urticaria episodes were encouraged to report office to consider increasing Effexor therapy. Allergic rhinitis due to food 08/22/2013 Overview (07/12/2016): ALLERGIC RHINITIS-FOOD GERD (gastroesophageal reflux disease) Resolved Problems Problem Noted Date Diagnosed Date Resolved Date Upper respiratory infection, acute 04/10/2023 05/27/2023 Assessment & Plan (04/10/2023 8:39 AM PIG FURNACE OPERATOR): Acute problem-onset x 5 days with worsening of cough and chest tightness over the last 2 days Ordered covid, flu a/b poc- negative results Ordered azithromycin 250 mg- take 2 tablets today and then 1 tablet daily x 4 days Ordered tessalon perles 200 mg- take 1 capsule tid prn for cough Patient educated on medications and aside effects Follow up as scheduled-sooner prn for no improvement Plan to order CXR if no improvement Tylenol/ibuprofen as needed Increase fluids, rest and handwashing Warm saltwater gargles Hot water/hot tea with honey 1 teaspoon of honey every 4 hours Saline rinses to nose at least twice daily No sharing cups or utensils Cool mist humidifier May use vicks vaporub on chest and feet as needed to help with cough Replace toothbrush in 5 days Wash pillow and bedlinens BMI 35.0-35.9,adult 04/10/2023 05/27/19 24 LUQ pain 02/01/2022 05/27/2023 Overview (02/01/2022): Added automatically from request for surgery [id number] Onychomycosis 11/06/2018 03/28/2020 Assessment & Plan (11/06/2018 8:40 AM CDT): Lamasil 250 daily x2 weeks to repeat 2 week course w/o improvement. No EtOH use while on medication. And follow-up in office with persistent sx Axillary abscess 12/20/2017 03/28/2020 Assessment & Plan (12/30/2017 2:57 PM CDT): No current surgical intervention, will refer to Dermatology for work up and treatment for probable HS. The patient was encouraged to call us in the mean time for abscess drainage as needed. Continue taking already prescribed bactrim. Assessment & Plan (12/20/2017 2:15 PM CDT): Recommended consultation to General surgery for possible cyst assess abscess removal. General hygiene techniques and education was provided office today as well. I did recommend for patient to take Bactrim b.i.d. for 10 days until being seen by specialist to determine need for cyst removal Abscess of axilla, left 03/22/201712/07 Assessment & Plan (03/22/2017 4:39 PM PIG FURNACE OPERATOR): Unable to perform I&D in office today due to the depth of the abscess. Patient was sent over to ER for more urgent care due to significant knee pain. We will touch base with her after ear discharge and certainly do where we can in the interim as well. Report was called over to ER to inform them of her arrival and condition. BMI 37.0-37.9, adult 03/21/2017 021 Assessment & Plan (03/22/2017 4:08 PM PIG FURNACE OPERATOR): Recommended patient to continue to increase heart healthy diet with adequate fruits, vegetables, and plenty of water along with mild-moderate daily exercise as tolerated. Assessment & Plan (03/21/2017 4:05 PM PIG FURNACE OPERATOR): Recommended patient to continue to increase heart healthy diet with adequate fruits, vegetables, and plenty of water along with mild-moderate daily exercise as tolerated. Acute folliculitis 03/21/2017 8 Assessment & Plan (03/22/2017 4:40 PM PIG FURNACE OPERATOR): Please refer to care plan limit her axillary abscess Assessment & Plan (03/21/2017 4:08 PM PIG FURNACE OPERATOR): Recommended Bactrim to cover for MRSA taking 1 tablet twice daily for 10 day course. I also advised to apply heat to these areas to assist with inflammation in weeping of lesions it is better to get the fluid out by the sting into causing abscess, and also advised her to clean with Dial soap 1 to 2 times a day. I did obtain a culture in office today as the lesions were not opening crusted dry, however, I was here in a week and there is no improvement symptoms after starting on the Bactrim will obtain a culture at that time. Will follow-up her in the interim regarding any concerns regarding condition otherwise will see her in a week Axillary lymphadenopathy 03/21/2017 Assessment & Plan (03/22/2017 4:40 PM PIG FURNACE OPERATOR): Please refer to care plan under axilla abscess Assessment & Plan (03/21/2017 4:05 PM PIG FURNACE OPERATOR): This is secondary to acute folliculitis noted axillary regions. Antibiotic that was prescribed office today will coat treat this as well as lymphadenopathy in once the infection is cleared under arms that should take care lymphadenopathy as well. Advised patient to avoid touching on the lymph nodes as this will cause further swelling will continue to monitor and see her here in a week regarding condition Acute dermatitis 03/11/2017 03/11/2017 Abscess of chin 01/02/2017 03/22/2017 Assessment & Plan (01/02/2017 4:12 PM CDT): Patient was encouraged to avoid picking at the site. No poking prodding or squeezing. Recommend topical antibiotic such as Neosporin, Polysporin, or triple antibiotic cream. Will treat with oral antibiotic Bactrim DS 1 by mouth twice daily to be taken with food. Abdominal pain, acute, epigastric 01/01/2017 01/16/2018 Assessment & Plan (01/02/2017 4:13 PM CDT): Recent ER records were reviewed. No acute abnormalities identified. Patient is scheduled for an upper EGD tomorrow. Further direction pending results. Assessment & Plan (01/01/2017 10:58 AM CDT): Poor response to prior treatment. Abdominal pain is getting worse. Offered to proceed with hold and call abdominal imaging today. Patient reports pain is too severe to wait for imaging or results. She elected to return to the emergency room for repeat assessment. accompanies her today. She was take to [facility] ER via wheelchair by my Neris Hargrove. Anxiety and depression 12/17/201601/16 Assessment & Plan (12/17/2016 4:25 PM CDT): Patient was encouraged to continue to work with her counselor, Amy Steven. Her Effexor had been working very well at its current dose. Her current anxiety and depressive symptoms are felt related to recent situation. I would like to see her work through this a bit more with her counselor. I did refill her p.r.n. anxiety medication. She will be back in about 2 weeks for a follow-up. We may then discuss medication adjustment if need be at that time. She is to contact me in the interim with absolutely any change in, worsening, or non improvement in her condition. She offered no further complaints and was in agreement with the plan of care. Obesity with body mass index 30 or greater 11/14/2015 11/10/2019 Overview (07/12/2016): BMI 30+ - obesity Encounters Date Type Department Care Team Description 03/08/2025 Telephone [facility] Primary Care at [address] [place] [address] Jose Bautista MD from Last 3 Months Immunizations Immunization Administration Dates Next Due Influenza, Quadrivalent, Rima l Culture-based MDCK, Preservative Free, Antibiotic Free, Intramuscular 01/23/2020 Influenza, Quadrivalent, Spl it, Preservative Free, Intramuscular 01/25/2021,01/16/2018,01/14/2017,01/15 Influenza, Trivalent, Preser vative Free, Intramuscular 04/03/2024 Influenza, Unspecified 02/08/2023,2021,01/06/2019(Defer red: Patient Refused),11/24/2018 Measles 05/15/1973 Moderna SARS-CoV-2 Monovalen t Vaccination (12+ YRS) 01/15/2022,06/21/2020,05/19/2020 Mumps 08/21/1976 Rubella 08/21/1976 Td, adsorbed 12/18/2004 Surgical History Surgery Date Site/Laterality Comments BACK SURGERY 04/08/2005 - 04/07/2006 Back surgery OTHER SURGICAL HISTORY Lower lumbar back surgery OTHER SURGICAL HISTORY 04/08/2016 - 04/07/2017 excision of axillary cysts COLONOSCOPY 06/17/2020 1st SPINAL CORD STIMULATOR IMPLANT 04/08/2023 - 04/07/2024 removed same day for complications Medical History Medical History Date Comments 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 Hx Other Medical urgent care hiv es; Comments: LNP 05/24/2014 - Depression GERD (gastroesophageal reflux disease) MRSA (methicillin resistant staph aureus) culture positive 2016 Diverticulosis IBS (irritable bowel syndrome) Family History Medical History Relation Name Comments Depression Brother Depression; Coronary artery disease Father Anthony nary artery disease; Heart attack Father Myocardial infa rction; Leukemia Father Cancer -leukemi a; /Leukemia; Cause of : Leukemia Myelodysplastic syndrome Father Other Father ; Colon cancer Father's Brother Breast cancer Maternal Grandmother Hypertension Mother Hypertension; Relation Name Status Comments Brother Father (Age 69) Father's Brother Maternal Grandmother Mother Alive Social History Tobacco Use Types Packs/Day Years Used Date Smoking Tobacco: Never Smokeless Tobacco: Never Tobacco Cessation:Counseling Given: Not Answered Alcohol Use Standard Drinks/Week Comments No 0 (1 standard drink = 0.6 oz pur e alcohol) [facility] Utilities Answer Date Recorded In the past 12 months has e [employer], gas, oil, or water [employer] threatened to shut off services in your [...] How often do you attend chur or yarsanism services? 1 to 4 times per year 08/19/2023 Do you belong to any clubs o r organizations such as hindu groups, unions, fraternal or athletic groups, or [...] place to sleep or slept in a group home (including now)? 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 Not on file Not on file Obstetrics History Para Term AB IAB SAB Ectopic Multiple Livin g Live Births 0 0 0 0 0 0 0 0 0 0 0 Last Filed Vital Signs Vital Sign Reading Time Taken Comments Blood Pressure 122/82 10/02/2024 1:57 PM CDT Pulse 93 10/02/2024 1:57 PM CDT Temperature 36.6 C (97.8 F) 10/02/2024 1:57 PM CDT Respiratory Rate 16 10/02/2024 1:57 PM CDT Oxygen Saturation 99% 10/02/2024 1:57 PM CDT Inhaled Oxygen Concentration - - Weight 84.8 kg (187 lb) 10/02/2024 1:57 PM CDT Height 162.6 cm (5' 4) 10/02/2024 1:57 PM CDT Body Mass Index 32.1 10/02/2024 1:57 PM CDT Plan of Treatment Health Maintenance Due Date Last Done Comments Hepatitis C Screening 1970 Hepatitis B Screening 1990 DTaP/Tdap/Td Vaccine (1 - Tdap) 12/19/2004 12/18/2004 Zoster Vaccine (1 of 2) 2022 Cervical Cancer Screening 04/03/2022 04/03/2021, Covid-19 Vaccine ( season) 2024 01/15/2022, 01/15/2022, 01/31/2021, Additional history exists Influenza Vaccine (#1) 2024 , 02/08/2023, 01/15/2022, Additional history exists Breast Cancer Screening-Mammogram 05/07/2025 05/07/2024, 05/06/2023, 04/05/2022, Additional history exists Regular Well Visit/Exam 18-64 05/07/2025 05/07/2024, 04/03/2024, 05/06/2023, Additional history exists Depression Screening 10/02/2025 10/02/2024, 09/29/2024, 04/03/2024, Additional history exists Colon Cancer Screening-Colonoscopy 02/06/2027 02/06/2022, 06/17/2020 Pneumococcal vaccine <65 Aged Out No longer eligible based on patient's age to complete this topic Medical Devices Implanted Type Area Cad Intern Device Identifier Shelf Expiration Date Model / Serial / Lot Neurostimula tor-08/12/2023 Implanted:Qt y: 1 on 08/12/2023 Neurostimulator Sacrum dia[employer] Procedures Procedure Name Priority Date/Time Associated Diagnosis Comments SCREENING MAMMOGRAM BILATERAL W CLARKE Schedule Routine, Read Routine (OP Routine) 05/07/2024 4:08 PM PIG FURNACE OPERATOR Encounter for screening mammogram for malignant neoplasm of breast COLONOSCOPY 02/06/2022 1:41 PM CDT IMAGING PAP AND HPV MRNA E6/E7 Routine 04/03/2021 12:00 AM PIG FURNACE OPERATOR from Last 3 Months or Most Recently Relevant to Health Maintenance Results * Screening Mammogram Bilateral W Clarke (05/07/2024 4:08 PM PIG FURNACE OPERATOR) Anatomical Region Laterality Modality Breast Bilateral Mammography 05/07/2024 8:52 PM PIG FURNACE OPERATOR Impressions 05/07/2024 8:52 PM PIG FURNACE OPERATOR There is no mammographic evidence of malignancy. A 1 year screening mammogram is recommended. BI-RADS: 1 - Negative. The patient has been or will be contacted. The patient will be entered into a reminder system with a target due date of 1 year for her next mammogram. Electronically signed by: Leigh Ann Munguia M.D. Narrative 05/07/2024 8:52 PM PIG FURNACE OPERATOR EXAMINATION: SCREENING MAMMOGRAM BILATERAL W CLARKE ORDERING HEALTHCARE PROVIDER: DOROTHY OATES HISTORY: Routine screening mammography. COMPARISON: 05/06/2023, 04/05/2022, 04/03/2021, 03/28/2020 TECHNIQUE: CC and MLO views of the bilateral breasts were obtained with digital technique using breast tomosynthesis with C view. Computer aided detection was utilized. FINDINGS: DENSITY: There are scattered areas of fibroglandular density. BREASTS: There are no suspicious masses, suspicious calcifications, or other suspicious findings in either breast. There has been no suspicious interval change. us Dorothy Oates MD IMG MAMMO PROCEDURES Final Result * COLONOSCOPY (02/06/2022 1:41 PM CDT) Anatomical Region Laterality Modality Other Narrative Procedure Note Dana Mcnair MD - 02/06/2022 1:41 PM CDT [facility] Patient Name: Emily An Procedure Date: 02/06/2022 1:41 PM Date of : 1970 Admit Type: Outpatient Age: 51 Gender: Female Attending MD: Dana Mcnair M.D. Room: [facility] ENDOSCOPY ROOM 1 Note Status: Finalized Patient Profile: This is a 51 year old female. Patient had recent episodes of bright red blood per rectum. She has chronic generalized abdominal pain mainly in the middle part of the abdomen. Colonoscopy forevaluation she has history of colon polyps as well. Procedure: Colonoscopy Indications: Last colonoscopy: June 2020, Generalized abdominal pain, Periumbilical abdominal pain, Rectalbleeding Referring MD: Jose Bautista M.D. Providers: Dana Mcnair M.D. Impression: - One 12 mm polyp in the ascending colon, removedwith a hot snare. Resected and retrieved. Clip (MR conditional) was placed. Clip car icer: Greats. - Diverticulosis in the sigmoid colon. - Internal hemorrhoids. Recommendation: - Await pathology results. - Repeat colonoscopy in 4 years for surveillance. Medicines: Monitored Anesthesia Care Complications: No immediate complications. Estimated Blood Loss: Estimated blood loss: none. Procedure: Pre-Anesthesia Assessment: - Prior to the procedure, a History and Physicalwas performed, and patient medications and allergieswere reviewed. The patient's tolerance of previous anesthesia was also reviewed. The risks andbenefits of the procedure and the sedation options and risks were discussed with the patient. All questions were answered, and informed consent was obtained. Prior Anticoagulants: The patient has taken noanticoagulant or antiplatelet agents. ASA Grade Assessment: II -A patient with mild systemic disease. After reviewing the risks and benefits, the patient was deemed in satisfactory condition to undergo the procedure. The benefits, risks and alternatives of theprocedure and sedation were discussed and informed consentwas obtained. All questions were answered. Please referto the signed informed consent document in the medical record. The bowel preparation used was Miralax and bisacodyl tablets via split dose instruction. The scope was passed under direct vision. The Pediatric Colonoscope PCF-H190L [id number] was introducedthrough the anus and advanced to the the cecum, identifiedby appendiceal orifice and ileocecal valve. Thequality of the bowel preparation was good. Bowel prep was administered using a split dose. Findings: The perianal and digital rectal examinations were normal. The cecum appeared normal. A 12 mm polyp was found in the ascending colon. The polyp wassessile. The polyp was removed with a hot snare. Resection and retrieval were complete. To prevent bleeding after the polypectomy, one hemostaticclip was successfully placed (MR conditional). Clip car icer: Greats. There was no bleeding at the end of the procedure. The descending colon and transverse colon appeared normal. Many medium-mouthed diverticula were found in the sigmoid colon. No inflammatory changes noted in the colon. The Internal hemorrhoids were found during retroflexion. The hemorrhoids were small. Electronically signed by Dana Mcnair M.D. Dana Mcnair M.D. 02/06/2022 3:52:53 PM Number of Addenda: 0 Note Initiated On: 02/06/2022 1:41 PM Procedure Code(s): --- Professional --- 17797, Colonoscopy, flexible; with removal of tumor(s), polyp(s), or other lesion(s) by snare technique Diagnosis Code(s): --- Professional --- K64.8, Other hemorrhoids D12.2, Benign neoplasm of ascending colon R10.84, Generalized abdominal pain R10.33, Periumbilical pain K62.5, Hemorrhage of anus and rectum K57.30, Diverticulosis of large intestine without perforation orabscess without bleeding CPT copyright 2020 [employer]. All rights reserved. The codes documented in this report are preliminary and upon mental health clinician reviewmay be revised to meet current compliance requirements. Recognized by the [employer] for promoting quality in endoscopy Dana Mcnair MD ENDOSCOPY PROCEDURES Final Result * Imaging Pap and HPV mRNA E6/E7 (04/03/2021 12:00 AM PIG FURNACE OPERATOR) CLINICAL INFORMATION: [facility] Comment:Information not prov ided LMP [facility] Comment:IUD PLACED Previous Pap [facility] Comment:INFORMATION NOT PROV IDED Prev. Bx [facility] Comment:INFORMATION NOT PROV IDED SOURCE: [facility] Comment:Cervix, Endocervix Pap, specimen adequacy [facility] Comment: Satisfactory for evaluation. Endocervical/transformation zone component present. HPV interp [facility] Comment:Negative for intraep ithelial lesion or malignancy. COMMENTS [facility] Comment: This Pap test has been evaluated with computer assisted technology. Web Applications Architect Pablo [facility] Comment: MARY JO, CT(ASCP) CT screening location: [place] [address] [place] [address] Review community specialist [facility] Comment: RM CT(ASCP) CT screening location: [place] [address] [place] [address] Comment [facility] Comment: EXPLANATORY NOTE: The Pap is a screening test for cervical cancer. It is not a diagnostic test and is subject to false negative and false positive results. It is most reliable when a satisfactory sample, regularly obtained, is submitted with relevant clinical findings and history, and when the Pap result is evaluated along with historic and current clinical information. Human papillomavirus RNA, High Risk E6/E7 Not Detected Not Detected [facility] 3Leaf Stewart Comment: Methodology: Financial Aid Counselor-Mediated Amplification This assay detects E6/E7 viral messenger RNA (mRNA) from 14 high-risk HPV types (16,18,31,33,35,39,45,51,52,56,58,59,66,68). The analytical performance characteristics of this assay have been determined by [employer] The modifications have not been cleared or approved by the FDA. This assay has been validated pursuant to the CLIA regulations and is used for clinical purposes. 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 FURNACE OPERATOR FASTING: UNKNOWN us Alicia Brothers NP LAB PATHOLOGY ORDERABLES Final Result ELIGIO [employer] [address] [place] [address] [employer] [address] [place] [address] from Last 3 Months or Most Recently Relevant to Health Maintenance Insurance [facility]O Address: [facility] [address] [place] [address] [facility]O [place]: [place] [address] [facility]/PPO Address: [place] [address] [facility]/PPO Address: [place] [address] Advance Directives For more information, please contact: [phone] * Full Code (Latest Code Status on File) Date Activated Date Inactivated Comments 08/16/2023 5:05 PM 08/26/2023 9:05 PM * Full Code Date Activated Date Inactivated Comments 08/12/2023 6:53 PM 08/16/2023 5:04 PM * Full Code Date Activated Date Inactivated Comments 02/06/2022 1:47 PM 02/06/2022 8:25 PM * Full Code Date Activated Date Inactivated Comments 06/17/2020 8:34 AM 06/17/2020 2:51 PM * Full Code Date Activated Date Inactivated Comments 06/17/2020 8:34 AM 06/17/2020 8:34 AM Care Teams Clay Miner Relationship Specialty Start Date End Date Jose Bautista MD PCP - General 10/27/09 [place] [address] [place] [id number] Consulting Physician Neurosurgery 08/26/23
== END 2025-03-08 16:07 | disposition home or self-care (01) ==
PROVIDERS: Emergency Provider Registered Nurse; PCP Internal Medicine
DX: L25.9 Unspecified contact dermatitis, unspecified cause (principal); K21.9 Gastro-esophageal reflux disease without esophagitis; F41.9 Anxiety disorder, unspecified; F32.A Depression, unspecified
CPT/HCPCS: 99213; G0463